=== PATIENT | female | born 1955 | race Caucasian/White ===

== ENCOUNTER → 2021-09-23 10:53 | Outpatient (BNVA) | payer MEDICARE, SELFPAY | PROVIDERS: PCP Internal Medicine; Visit Provider Hospitalist | DX: G47.33 Obstructive sleep apnea (adult) (pediatric) (principal); J45.909 Unspecified asthma, uncomplicated; R06.00 Dyspnea, unspecified; E66.01 Morbid (severe) obesity due to excess calories; Z68.41 Body mass index [BMI] 40.0-44.9, adult | CPT/HCPCS: 99202 ==

== ENCOUNTER 2021-10-29 12:43 | Outpatient (REF) | payer MEDICARE, SELFPAY ==
--- NOTE | 2021-10-29 15:13 | PFT_ITS ---
FLOWS: FEV1 103% of predicted at 2.67 L. FVC 89% of predicted at 3.04 L. FEV1 to FVC ratio of 0.88. No bronchodilator response. LUNG VOLUMES: Total lung capacity 87% of predicted at 4.67 L. Residual volume 71% of predicted at 1.56 L. Slow vital capacity 98% of predicted at 3.10 L. Expiratory reserve volume 30% of predicted at 0.26 L. Diffusion capacity is mildly decreased, diffusion capacity corrects to normal after adjustment for alveolar ventilation. IMPRESSION: No obstructive or restrictive ventilatory defect. No bronchodilator response. Decreased expiratory reserve volume suggests extrathoracic restriction, likely secondary to abdominal obesity. Caleb Haas MD AP/MODL / [id number]
== END 2021-10-29 12:44 | disposition home or self-care (01) ==
LOC: HO.RESP 12:43
PROVIDERS: PCP Internal Medicine; Visit Provider Hospitalist
DX: J45.909 Unspecified asthma, uncomplicated (principal); R06.00 Dyspnea, unspecified
CPT/HCPCS: 94060; 94727; 94729

== ENCOUNTER → 2021-11-21 09:43 | Outpatient (BNVA) | payer MEDICARE, SELFPAY | PROVIDERS: PCP Internal Medicine; Visit Provider Hospitalist | DX: G47.33 Obstructive sleep apnea (adult) (pediatric) (principal); J45.40 Moderate persistent asthma, uncomplicated; R06.00 Dyspnea, unspecified; E66.01 Morbid (severe) obesity due to excess calories | CPT/HCPCS: 99212 ==

== ENCOUNTER → 2022-05-05 10:06 | Outpatient (BNVA) | payer MEDICARE, SELFPAY | PROVIDERS: PCP Internal Medicine; Visit Provider Hospitalist | DX: J45.909 Unspecified asthma, uncomplicated (principal); J45.40 Moderate persistent asthma, uncomplicated; G47.33 Obstructive sleep apnea (adult) (pediatric); E66.01 Morbid (severe) obesity due to excess calories; R06.00 Dyspnea, unspecified; Z68.41 Body mass index [BMI] 40.0-44.9, adult | CPT/HCPCS: 99212 ==

== ENCOUNTER → 2022-08-06 10:14 | Outpatient (BNVA) | payer MEDICARE, SELFPAY | PROVIDERS: PCP Internal Medicine; Visit Provider Hospitalist | DX: J45.40 Moderate persistent asthma, uncomplicated (principal); R06.00 Dyspnea, unspecified; G47.33 Obstructive sleep apnea (adult) (pediatric); E66.01 Morbid (severe) obesity due to excess calories; Z68.41 Body mass index [BMI] 40.0-44.9, adult | CPT/HCPCS: 99212 ==

== ENCOUNTER → 2022-12-08 13:12 | Outpatient (BNVA) | payer MEDICARE, SELFPAY | PROVIDERS: PCP Internal Medicine; Visit Provider Hospitalist | DX: J45.40 Moderate persistent asthma, uncomplicated (principal); G47.33 Obstructive sleep apnea (adult) (pediatric); R06.00 Dyspnea, unspecified; E66.01 Morbid (severe) obesity due to excess calories; Z68.41 Body mass index [BMI] 40.0-44.9, adult | CPT/HCPCS: 99212 ==

== ENCOUNTER 2023-07-03 11:03 | Outpatient (AMB) | payer MEDICARE, SELFPAY ==
--- NOTE | 2023-07-03 11:06 | MHC.OFFVIS ---
Intake Vital Signs 07/03/23 11:07 Height 5 ft 6 in Weight 256 lb BMI 41.3 Pulse 90 Pulse Source Pulse Oximeter Pulse Oximetry (%) 97 Oxygen Delivery Method Room Air Intake Visit Reasons: Asthma Surgical Coordinator Required: No Allergies Sulfa (Sulfonamide Antibiotics) Allergy (Severe, Verified 07/03/23 11:08) Hives sulfamethoxazole [From Bactrim] Allergy (Severe, Verified 07/03/23 11:08) Hives trimethoprim [From Bactrim] Allergy (Severe, Verified 07/03/23 11:08) Hives Lactose Intolerance Adverse Reaction (Severe, Uncoded 07/03/23 11:08) Abdominal Pain HPI HPI Comments History of Present Illness Details The patient is a 68-year-old woman with known history of asthma who apparently has been developing worsening shortness of breath for the last year. The patient has been using maintenance therapy. However, continues to be symptomatic with dyspnea on exertion. Moderate severity. She is concerned about her weight. She has tried to lose weight and she has a hard time doing so. Specially since she has 0 out of breath. Apparently back in September 2020 the patient did get her vaccination for COVID-19. After the 2nd dose she developed significant abdominal discomfort and shortness of breath. She was taken to the ER where she did have a CT scan of the chest which ruled out pulmonary emboli although it did demonstrate she had evidence of pancreatitis. Thought to be related to the vaccination. In the meantime I did look at the CT scan myself and there appears to be significant amount of mosaic pattern and air trapping consistent with small airways disease and has some degree of pneumonitis. The patient has been taking her Symbicort with good adherence. She does not take any long-acting muscarinic antagonist this time. This will be an option for her. We did look at her blood work as well demonstrating evidence of eosinophilia suggesting eosinophilic phenotype which could correspond to allergic asthma. The patient had allergy testing many years ago. The patient may be a good candidate for biologic therapy if she continues to be symptomatic with her asthma. The patient also has a history of sleep apnea. She has been on CPAP now for many months. The therapy has been affecting beneficial. She does have a nasal mask or nasal pillows. She does complaint of a dry mouth. We talked about the importance of using a chinstrap. She is going to bring her CPAP machine to the next visit. 11/21/2021 the patient is here for a pulmonary follow-up visit. Patient overall is doing better from a respiratory status. She continues use her respiratory medications with good effect. She has not required her rescue inhaler. She she was curious about her CT scan of the chest. Again, demonstrated some degree of pneumonitis and also was a pattern suggestive of small airways disease. Will plan to follow-up with a chest x-ray during the next visit. It is reassuring that her symptoms are improving. She did bring her CPAP. The CPAP therapy has been affecting beneficial. She has been using it every night. We downloaded the data and she averaged VII hours. . AHI was 0.5. She has been having issues with a dry mouth. I decreased her temperature from 84 for to 78 degrees and also change her humidity back to auto. I did she will her heart is changes to manual if she wanted to go back to her previous settings. Her asthma seems to be responding well to the current therapy which includes Symbicort the Singulair and the allergy therapy. 05/05/2022 the patient is here for pulmonary follow-up visit. She is doing a little better. Although, she does complaint of dyspnea on exertion. Minimal activity makes her very short of breath. She also staying with other musculoskeletal issues that are limiting her physical activity. She has been using the Symbicort with good effect. Although she has been noticing she has been using her rescue inhaler more often also during the daytime. We did review her blood work demonstrating evidence elevations in the IgE suggesting allergic asthma. We did talk about biologic therapy such as Xolair. Her eosinophils were normal. I did give her some reading material for her to take with her. In the meantime will optimize respiratory therapy by adding Incruse to her respiratory therapy. I am hopeful that she gets relief and is able to improve her symptoms without any biologic therapy. If however she continues to have symptoms will consider biologic therapy during her next visit. She continues use her CPAP. CPAP therapy continues to be affecting beneficial. She does use it for more than 4 hours a night. She does have significant daytime drowsiness. She is also feeling tired. She is wondering if it is from her sleep apnea not being treated. She does have an old machine more than 6 years old. We can see about switching at this time. Her AHI appears to be well. Will request a replacement machine at this time. in the meantime she also follow-up with primary care doctor to evaluate other etiologies for chronic fatigue. 08/06/2022 the patient is here for a pulmonary follow-up visit. Overall the patient is doing well. She is working on her lifestyle changes. She started the diet. She is looking to going back to the gym and exercising as she has gained weight. From a CPAP standpoint she has been using a new CPAP. I do not have access to it right now. She has been using more than 4 hours a night per report. The patient does complaint of a dry mouth. Understandably the new rest pain machine has a very small water chamber. Therefore I did given instructions on how to adjust doubt temperature and the humidity to make sure that it is enough therapy for the night. The patient does use a full mask already. No significant issues with mask fitting. She has been getting supplies readily available to her [employer]. In the meantime she has increased asthma symptoms. She does have chest tightness. She has been using Symbicort. She also was prescribed Incruse. The patient does have increased shortness of breath and chest tightness specially when exercising. I did recommend she can use her rescue inhaler as needed but also before exercise. The patient also has a peak flow and I did provide her a new 1 in order for her to monitor her peak flows and address any issues. As far as biologic therapies the patient does have an elevated IgE and also has significant allergies. The patient will benefit from Xolair at this time. Will have her do repeat the blood work since has been almost a year to see the actual dose that she will benefit from. Once the patient starts Xolair we can minimize the use of prednisone and hopefully improve her quality of life and exercise capacity. 12/08/2022 the patient is here for a pulmonary follow-up visit. Overall she is doing a little better. She continues on the Symbicort. The addition of the Incruse was effective for her. She feels like is helping her breathing. Although, she still feels shortness of breath with activity. She also complains of a cough sometimes productive in nature. We did talk about asthmatic bronchitis and chronic bronchitis and potentially starting her on therapy for the congestion. However, it will cause additional polypharmacy. She needs to start using the nebulizer did not provide better bronchopulmonary hygiene with hopes of minimizing additional medications. If the patient is no better with increasing nebulized therapy and continue respiratory therapy we can consider starting biologic therapy such as Xolair to help with her significant allergies. Her IgE was already noted to be elevated and therefore she will respond well to Xolair. The other option if her allergy testing is not significantly elevated is to consider Daliresp. Therefore should continue with therapy start bronchopulmonary hygiene with the nebulizer and will get blood work prior to the next visit 07/03/2023 the patient is here for a sick visit. Apparently back late May she started having worsening respiratory symptoms. She went to an Urgent Care was diagnosed with bronchitis and given a Z-Chivo. Her symptoms continued to worsen and she went to see her primary care doctor at that point she was given some prednisone for worsening cough in addition to additional antibiotics, doxycycline for 7 days. Her cough is significantly she ended up getting cough syrup with codeine. She had a very croupy cough. Therefore protests was thought about and at that point she already was treated with azithromycin. She did have a chest x-ray read as no acute disease also personally reviewed the x-ray agree with the results. The patient was then placed another course of prednisone and as 3rd course of antibiotics with Augmentin as she was not getting any better. Today she has come in and she is still on 40 mg of prednisone and she still having some increasing cough and shortness of breath and chest tightness. She has been using her nebulizer. I did encourage her to use it more. I did given 2 DuoNeb treatments in the office because of her bronchospasms. The patient also received Solu-Medrol 125 mg IM x1. Appears that she likely has a component of postviral bacterial lower respiratory infection. I do agree with the Augmentin. Will add doxycycline to the regimen just to treat more further the possibility of staph and strep. If the patient is no better she is able to bring up a sputum for culture that will be helpful as well. In meantime she will continue with Symbicort inhaler. 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) History of total left knee replacement (TKR) (~12/2015) History of partial hysterectomy (~10/2010) Social History (Updated 09/23/21 @ 11:11 by RATNA Tavarez) Patient Tobacco Use Status: Never used Tobacco Review of Systems Const Denies daytime sleepiness and Reports fatigue Eyes Denies change in vision ENT Denies change in voice, Reports nasal congestion and Reports nasal discharge Card Denies chest pain and Reports dyspnea on exertion Resp Reports change in phlegm color, Reports chest congestion, Reports cough, Denies hemoptysis, Reports dyspnea on exertion and Reports wheezing GI Reports no additional complaints Musc Reports no additional complaints Skin/Breast Denies rash Neuro Reports no additional complaints Endo Reports fatigue Betito/Lymph Denies easy bruising Aller/Immun Reports wheezing Physical Exam Vital Signs: Last Vital Signs Pulse 90 07/03/23 11:07 Pulse Ox 97 07/03/23 11:07 Oxygen Delivery Method Room Air 07/03/23 11:07 BMI result Body Mass Index 41.3 Const General: alert Neck Neck: Yes normal visual inspection, Yes full ROM and Yes no lymphadenopathy Chest Chest palpation & inspection: normal inspection of the chest Resp Effort & Inspection: Actively coughing Quality: actively coughing, tachypneic and prolonged expiratory phase Auscultation: wheezes and diminished lung sounds Cardio Rate: regular rate Rhythm: regular rhythm Heart sounds: S1 normal heart sound present and S2 normal heart sound present GI Palpation (GI): Soft to palpation and nontender Auscultation: normal bowel sounds Skin General skin exam: rashes and/or lesions noted Office Procedures Nebulizer Treatment Nebulizer Treatment [id number] RX initial, or Nebulizer Subsequent Treatment Office Meds methylprednisolone sod suc(PF) 125 mg/2 mL solution for injection Performing Provider: Anival Hook MD Performing Location: [facility] Administered by: Meagan New LPN on 07/03/23 13:30 Dose Route Admin Location Dispensed Lot Number Expiration Date [employer] 125 mg IM R buttock 2 mL [id number] 06/28/25 3876-7928-40 [employer] ipratropium 0.5 mg-albuterol 3 mg (2.5 mg base)/3 mL nebulization soln Performing Provider: Anival Hook MD Performing Location: [facility] Administered by: Meagan New LPN on 07/03/23 13:30 Dose Route Admin Location Dispensed Lot Number Expiration Date [employer] 3 mL inhalation 3 mL [id number] 12/26/24 8029-9438-71 [facility] Assessment & Plan Assessment & Plan (1) Asthma: Code(s): J45.909 - Unspecified asthma, uncomplicated Qualifiers: Asthma complication type: with acute exacerbation Asthma persistence: persistent Asthma severity: moderate Qualified Code(s): J45.41 - Moderate persistent asthma with (acute) exacerbation (2) Obstructive sleep apnea: Comment: (mild [place] on 04/18/2015 Sleep test) Code(s): G47.33 - Obstructive sleep apnea (adult) (pediatric) (3) Dyspnea: Code(s): R06.00 - Dyspnea, unspecified Qualifiers: Dyspnea type: dyspnea on exertion Qualified Code(s): R06.00 - Dyspnea, unspecified (4) Tracheobronchitis: Code(s): J40 - Bronchitis, not specified as acute or chronic Plan Continue nebulized therapy, DuoNeb x2 provided in the office Continue prednisone taper, Solu-Medrol 125 mg IM administer today Continue Augmentin Restart doxycycline Cough medication Sputum culture if able Continue Symbicort, will need to change based on formulary continue Incruse KERRI as needed Continue PAP therapty 8-12, The patient continues to be symptomatic. AirSense 11 consider starting Bilogic therapy, elevated IgE. Xolair will be helpful bloodwork Weight management F/U 2 months Orders: Orders AMB Nebulizer Treatment 07/03/23 J45.909 - Unspecified asthma, uncomplicated AMB Methylprednisolone Injection 07/03/23 J45.909 - Unspecified asthma, uncomplicated Medications: New codeine-guaifenesin 10-100 mg/5 mL 10 mL PO Q6H 10 days PRN 300 mL 0RF cough albuterol sulfate 2.5 mg (3 mL) inhalation Q6H 30 days PRN 180 mL 11RF shortness of breath or wheezing Coding Level of Care Code Est Pt Level 4 (43787) Diagnoses Moderate persistent asthma with acute exacerbation J45.41 Asthma complication type: with acute exacerbation Asthma persistence: persistent Asthma severity: moderate Obstructive sleep apnea G47.33 Dyspnea on exertion R06.00 Dyspnea type: dyspnea on exertion Tracheobronchitis J40 CPT Codes Nebulizer Treatment - Nebulizer Treatment, initial or subsequent: [id number]/MDI RX initial, or Nebulizer Subsequent Treatment ([id number]) Time Spent (min) 20
[2023-07-03 11:07] VITALS: PULSE 90; O2SAT 97; BMI 41.3
== END 2023-07-03 11:49 | disposition home or self-care (01) ==
PROVIDERS: PCP Internal Medicine; Visit Provider Hospitalist
DX: J45.41 Moderate persistent asthma with (acute) exacerbation (principal); G47.33 Obstructive sleep apnea (adult) (pediatric); R06.00 Dyspnea, unspecified; J40 Bronchitis, not specified as acute or chronic
CPT/HCPCS: 99214

== ENCOUNTER → 2023-07-03 11:03 | Outpatient (BNVA) | payer MEDICARE, SELFPAY | PROVIDERS: PCP Internal Medicine; Visit Provider Hospitalist | DX: J45.41 Moderate persistent asthma with (acute) exacerbation (principal); J40 Bronchitis, not specified as acute or chronic; G47.33 Obstructive sleep apnea (adult) (pediatric); R06.00 Dyspnea, unspecified | CPT/HCPCS: 94640; 96372; 99212; J2930 ==

== ENCOUNTER 2023-11-27 14:02 | Outpatient (AMB) | payer MEDICARE, SELFPAY ==
[2023-11-27 14:06] VITALS: PULSE 72; O2SAT 96; BMI 41.8
--- NOTE | 2023-11-27 14:06 | A.OFFVIS_ITS ---
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 The patient has been using maintenance therapy. However, continues to be symptomatic with dyspnea on exertion. Moderate severity. She is concerned about her weight. She has tried to lose weight and she has a hard time doing so. Specially since she has 0 out of breath. Apparently back in September 2020 the patient did get her vaccination for COVID-19. After the 2nd dose she developed significant abdominal discomfort and shortness of breath. She was taken to the ER where she did have a CT scan of the chest which ruled out pulmonary emboli although it did demonstrate she had evidence of pancreatitis. Thought to be related to the vaccination. In the meantime I did look at the CT scan myself and there appears to be significant amount of mosaic pattern and air trapping consistent with small airways disease and has some degree of pneumonitis. The patient has been taking her Symbicort with good adherence. She does not take any long-acting muscarinic antagonist this time. This will be an option for her. We did look at her blood work as well demonstrating evidence of eosinophilia suggesting eosinophilic phenotype which could correspond to allergic asthma. The patient had allergy testing many years ago. The patient may be a good candidate for biologic therapy if she continues to be symptomatic with her asthma. The patient also has a history of sleep apnea. She has been on CPAP now for many months. The therapy has been affecting beneficial. She does have a nasal mask or nasal pillows. She does complaint of a dry mouth. We talked about the importance of using a chinstrap. She is going to bring her CPAP machine to the next visit. 11/21/2021 the patient is here for a pulmonary follow-up visit. Patient overall is doing better from a respiratory status. She continues use her respiratory medications with good effect. She has not required her rescue inhaler. She she was curious about her CT scan of the chest. Again, demonstrated some degree of pneumonitis and also was a pattern suggestive of small airways disease. Will p ady to follow-up with a chest x-ray during the next visit. It is reassuring that her symptoms are improving. She did bring her CPAP. The CPAP therapy has been affecting beneficial. She has been using it every night. We downloaded the data and she averaged VII hours. . AHI was 0.5. She has been having issues with a dry mouth. I decreased her temperature from 84 for to 78 degrees and also change her humidity back to auto. I did she will her heart is changes to manual if she wanted to go back to her previous settings. Her asthma seems to be responding well to the current therapy which includes Symbicort the Singulair and the allergy therapy. 05/05/2022 the patient is here for pulmonary follow-up visit. She is doing a little better. Although, she does complaint of dyspnea on exertion. Minimal activity makes her very short of breath. She also staying with other musculoskeletal issues that are limiting her physical activity. She has been using the Symbicort with good effect. Although she has been noticing she has been using her rescue inhaler more often also during the daytime. We did review her blood work demonstrating evidence elevations in the IgE suggesting allergic asthma. We did talk about biologic therapy such as Xolair. Her eosinophils were normal. I did give her some reading material for her to take with her. In the meantime will optimize respiratory therapy by adding Incruse to her respiratory therapy. I am hopeful that she gets relief and is able to improve her symptoms without any biologic therapy. If however she continues to have symptoms will consider biologic therapy during her next visit. She continues use her CPAP. CPAP therapy continues to be affecting beneficial. She does use it for more than 4 hours a night. She does have significant daytime drowsiness. She is also feeling tired. She is wondering if it is from her sleep apnea not being treated. She does have an old machine more than 6 years old. We can see about switching at this time. Her AHI appears to be well. Will request a replacement machine at this time. in the meantime she also follow-up with primary care doctor to evaluate other etiologies for chronic fatigue. 08/06/2022 the patient is here for a pulmonary follow-up visit. Overall the patient is doing well. She is working on her lifestyle changes. She started the diet. She is looking to going back to the gym and exercising as she has gained weight. From a CPAP standpoint she has been using a new CPAP. I do not have access to it right now. She has been using more than 4 hours a night per report. The patient does complaint of a dry mouth. Understandably the new rest pain machine has a very small water chamber. Therefore I did given instructions on how to adjust doubt temperature and the humidity to make sure that it is enough therapy for the night. The patient does use a full mask already. No significant issues with mask fitting. She has been getting supplies readily available to her [employer] company. In the meantime she has increased asthma symptoms. She does have chest tightness. She has been using Symbicort. She also was prescribed Incruse. The patient does have increased shortness of breath and chest tightness specially when exercising. I did recommend she can use her rescue inhaler as needed but also before exercise. The patient also has a peak flow and I did provide her a new 1 in order for her to monitor her peak flows and address any issues. As far as biologic therapies the patient does have an elevated IgE and also has significant allergies. The patient will benefit from Xolair at this time. Will have her do repeat the blood work since has been almost a year to see the actual dose that she will benefit from. Once the patient starts Xolair we can minimize the use of prednisone and hopefully improve her quality of life and exercise capacity. 12/08/2022 the patient is here for a pulmonary follow-up visit. Overall she is doing a little better. She continues on the Symbicort. The addition of the Incruse was effective for her. She feels like is helping her breathing. Although, she still feels shortness of breath with activity. She also complains of a cough sometimes productive in nature. We did talk about asthmatic bronchitis and chronic bronchitis and potentially starting her on therapy for the congestion. However, it will cause additional polypharmacy. She needs to start using the nebulizer did not provide better bronchopulmonary hygiene with hopes of minimizing additional medications. If the patient is no better with increasing nebulized therapy and continue respiratory therapy we can consider starting biologic therapy such as Xolair to help with her significant allergies. Her IgE was already noted to be elevated and therefore she will respond well to Xolair. The other option if her allergy testing is not significantly elevated is to consider Daliresp. Therefore should continue with therapy start bronchopulmonary hygiene with the nebulizer and will get blood work prior to the next visit 07/03/2023 the patient is here for a sick visit. Apparently back late May she started having worsening respiratory symptoms. She went to an Urgent Care was diagnosed with bronchitis and given a Z-Chivo. Her symptoms continued to worsen and she went to see her primary care doctor at that point she was given some prednisone for worsening cough in addition to additional antibiotics, doxycycline for 7 days. Her cough is significantly she ended up getting cough syrup with codeine. She had a very croupy cough. Therefore protests was thought about and at that point she already was treated with azithromycin. She did have a chest x-ray read as no acute disease also personally reviewed the x- ray agree with the results. The patient was then placed another course of prednisone and as 3rd course of antibiotics with Augmentin as she was not getting any better. Today she has come in and she is still on 40 mg of pred nisone and she still having some increasing cough and shortness of breath and chest tightness. She has been using her nebulizer. I did encourage her to use it more. I did given 2 DuoNeb treatments in the office because of her bronchospasms. The patient also received Solu-Medrol 125 mg IM x1. Appears that she likely has a component of postviral bacterial lower respiratory infection. I do agree with the Augmentin. Will add doxycycline to the regimen just to treat more further the possibility of staph and strep. If the patient is no better she is able to bring up a sputum for culture that will be helpful as well. In meantime she will continue with Symbicort inhaler. 11/27/2023 the patient is here for a pulmonary follow-up visit. The patient is still having hard time with her asthma. Continues have wheezing at times. Moderate severity. Also shortness breath with activity. She also has a nonproductive cough. Her inhalers have not been completely effective. Will go ahead and maximize her respiratory therapy by switching over to Trelegy. Also with a free can chronic bronchitis and frequent exacerbations she will be a good candidate for Daliresp. Explained to her the side effects and she can start a low dose and then slowly increase it to hopefully reach the therapeutic dose of 100 mcg. The patient is also concerned about her weight. She is considering being evaluated for medical weight management. She continues use her CPAP every night. CPAP therapy has been affecting beneficial. She has been on CPAP for many years. She can not sleep without it. When she does sleep without it she does wake up short of breath. [facility] Medical History (Updated 11/29/23 @ 22:51 by Anival Hook MD) Asthma-COPD overlap syndrome Chronic cough Obstructive sleep apnea Morbid obesity Lactose intolerance History of uterine cancer Anxiety Hyperlipidemia Hypertension Dyspnea Asthma Surgical History (Updated 09/23/21 @ 15:28 by Marj Lepe PA-C) History of surgery on left wrist (~1977) History of umbilical hernia repair (~1979) History of appendectomy (~02/2014) History of total right knee replacement (TKR) (~08/2016) History of total left knee replacement (TKR) (~12/2015) History of partial hysterectomy (~10/2010) Social History (Updated 09/23/21 @ 11:11 by RATNA Tavarez) Patient Tobacco Use Status: Never used Tobacco Review of Systems Const Denies daytime sleepiness and Reports fatigue Eyes Denies change in vision ENT Denies change in voice, Reports nasal congestion and Reports nasal discharge Card Denies chest pain and Reports dyspnea on exertion Resp Reports cough, Denies hemoptysis, Reports dyspnea on exertion and Reports wheezing GI Reports no additional complaints Musc Reports no additional complaints Skin/Breast Denies rash Neuro Reports no additional complaints Endo Reports fatigue Betito/Lymph Denies easy bruising Aller/Immun Reports wheezing Physical Exam Vital Signs: Last Vital Signs Pulse 72 11/27/23 14:06 Pulse Ox 96 11/27/23 14:06 Oxygen Delivery Method Room Air 11/27/23 14:06 BMI result Body Mass Index 41.8 Const General: alert Neck Neck: Yes normal visual inspection, Yes full ROM and Yes no lymphadenopathy Chest Chest palpation & inspection: normal inspection of the chest Resp Effort & Inspection: normal respiratory effort and prolonged expiratory phase Auscultation: wheezes and diminished lung sounds Cardio Rate: regular rate Rhythm: regular rhythm Heart sounds: S1 normal heart sound present and S2 normal heart sound present GI Palpation (GI): Soft to palpation and nontender Auscultation: normal bowel sounds Skin General skin exam: rashes and/or lesions noted Assessment & Plan Assessment & Plan (1) Asthma: Code(s): J45.909 - Unspecified asthma, uncomplicated Category: Medical Qualifiers: Asthma complication type: uncomplicated Asthma persistence: persistent Asthma severity: moderate Qualified Code(s): J45.40 - Moderate persistent asthma, uncomplicated (2) Obstructive sleep apnea: Comment: (mild [place] on 04/18/2015 Sleep test) Code(s): G47.33 - Obstructive sleep apnea (adult) (pediatric) Category: Medical (3) Dyspnea: Code(s): R06.00 - Dyspnea, unspecified Category: Medical Qualifiers: Dyspnea type: dyspnea on exertion Qualified Code(s): R06.00 - Dyspnea, unspecified (4) Asthma-COPD overlap syndrome: Code(s): J44.89 - Other specified chronic obstructive pulmonary disease Category: Medical Plan stop Symbicort, will need to change based on formulary stop Incruse start Trelegy 200 start Daliresp 250mcg KERRI as needed Continue PAP therapty 8-12, The patient continues to be symptomatic. AirSense 11 consider starting Bilogic therapy, elevated IgE. Xolair will be helpful Weight management F/U 3-4 months Medications: New roflumilast (Daliresp) 250 mcg PO DAILY 30 tabs 11RF 30 days J44.9 - Chronic obstructive pulmonary disease, unspecified [id number] 200-62.5-25 mcg (Trelegy Ellipta) 1 inh inhalation DAILY 60 ea 12RF 30 days Coding Level of Care Code Est Pt Level 4 (51495) Diagnoses Moderate persistent asthma without complication J45.40 Asthma complication type: uncomplicated Asthma persistence: persistent Asthma severity: moderate Obstructive sleep apnea G47.33 Dyspnea on exertion R06.00 Dyspnea type: dyspnea on exertion Asthma-COPD overlap syndrome J44.89 Time Spent (min) 17
== END 2023-11-27 14:26 | disposition home or self-care (01) ==
PROVIDERS: PCP Internal Medicine; Visit Provider Hospitalist
DX: J45.40 Moderate persistent asthma, uncomplicated (principal); G47.33 Obstructive sleep apnea (adult) (pediatric); R06.00 Dyspnea, unspecified; J44.89 Other specified chronic obstructive pulmonary disease
CPT/HCPCS: 99214

== ENCOUNTER → 2023-11-27 14:02 | Outpatient (BNVA) | payer MEDICARE, SELFPAY | PROVIDERS: PCP Internal Medicine; Visit Provider Hospitalist | DX: J45.40 Moderate persistent asthma, uncomplicated (principal); J44.89 Other specified chronic obstructive pulmonary disease; G47.33 Obstructive sleep apnea (adult) (pediatric); R06.00 Dyspnea, unspecified | CPT/HCPCS: 99212 ==

== ENCOUNTER 2024-05-06 14:42 | Outpatient (AMB) | payer MEDICARE, SELFPAY ==
--- NOTE | 2024-05-06 14:43 | A.OFFVIS_ITS ---
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 offered & declined Accompanied by: Self / Same As Patient Allergies Sulfa (Sulfonamide Antibiotics) Allergy (Severe, Verified 05/06/24 14:49) Hives sulfamethoxazole [From Bactrim] Allergy (Severe, Verified 05/06/24 14:49) Hives trimethoprim [From Bactrim] Allergy (Severe, Verified 05/06/24 14:49) Hives Lactose Intolerance Adverse Reaction (Severe, Uncoded 05/06/24 14:49) Abdominal Pain Medication List - Last Reconciled 05/06/24 by Kaur Mtz LPN albuterol sulfate 90 mcg/actuation 2 inhalations inhalation Q6H PRN 30 days albuterol sulfate 2.5 mg (3 mL) inhalation Q6H PRN 30 days atorvastatin 10 mg PO DAILY codeine-guaifenesin 10-100 mg/5 mL 10 mL PO Q6H PRN 10 days rcjzbfmotve-imzrrkhhf-knaphikd 200-62.5-25 mcg (Trelegy Ellipta) 1 inh inhalation DAILY 30 days lisinopril 15 mg PO meloxicam 7.5 mg PO DAILY montelukast 10 mg PO DAILY 90 days nebulizers As directed oxybutynin chloride ER 10 mg PO DAILY roflumilast (Daliresp) 250 mcg PO DAILY 30 days HPI Comments Details: The patient is a 69-year-old woman with known history of asthma who apparently has been developing worsening shortness of breath for the last year. The patient has been using maintenance therapy. However, continues to be sym ptomatic with dyspnea on exertion. Moderate severity. She is concerned about her weight. She has tried to lose weight and she has a hard time doing so. Specially since she has 0 out of breath. Apparently back in September 2020 the patient did get her vaccination for COVID-19. After the 2nd dose she developed significant abdominal discomfort and shortness of breath. She was taken to the ER where she did have a CT scan of the chest which ruled out pulmonary emboli although it did demonstrate she had evidence of pancreatitis. Thought to be related to the vaccination. In the meantime I did look at the CT scan myself and there appears to be significant amount of mosaic pattern and air trapping consistent with small airways disease and has some degree of pneumonitis. The patient has been taking her Symbicort with good adherence. She does not take any long-acting muscarinic antagonist this time. This will be an option for her. We did look at her blood work as well demonstrating evidence of eosinophilia suggesting eosinophilic phenotype which could correspond to allergic asthma. The patient had allergy testing many years ago. The patient may be a good candidate for biologic therapy if she continues to be symptomatic with her asthma. The patient also has a history of sleep apnea. She has been on CPAP now for many months. The therapy has been affecting beneficial. She does have a nasal mask or nasal pillows. She does complaint of a dry mouth. We talked about the importance of using a chinstrap. She is going to bring her CPAP machine to the next visit. 11/21/2021 the patient is here for a pulmonary follow-up visit. Patient overall is doing better from a respiratory status. She continues use her respiratory medications with good effect. She has not required her rescue inhaler. She she was curious about her CT scan of the chest. Again, demonstrated some degree of pneumonitis and also was a pattern suggestive of small airways disease. Will plan to follow-up with a chest x-ray during the next visit. It is reassuring that her symptoms are improving. She did bring her CPAP. The CPAP therapy has been affecting beneficial. She has been using it every night. We downloaded the data and she averaged VII hours. . AHI was 0.5. She has been having issues with a dry mouth. I decreased her temperature from 84 for to 78 degrees and also change her humidity back to auto. I did she will her heart is changes to manual if she wanted to go back to her previous settings. Her asthma seems to be responding well to the current therapy which includes Symbicort the Singulair and the allergy therapy. 05/05/2022 the patient is here for pulmonary follow-up visit. She is doing a little better. Although, she does complaint of dyspnea on exertion. Minimal activity makes her very short of breath. She also staying with other musculoskeletal issues that are limiting her physical activity. She has been using the Symbicort with good effect. Although she has been noticing she has been using her rescue inhaler more often also during the daytime. We did review her blood work demonstrating evidence elevations in the IgE suggesting allergic asthma. We did talk about biologic therapy such as Xolair. Her eosinophils were normal. I did give her some reading material for her to take with her. In the meantime will optimize respiratory therapy by adding Incruse to her respiratory therapy. I am hopeful that she gets relief and is able to improve her symptoms without any biologic therapy. If however she continues to have symptoms will consider biologic therapy during her next visit. She continues use her CPAP. CPAP therapy continues to be affecting beneficial. She does use it for more than 4 hours a night. She does have significant daytime drowsiness. She is also feeling tired. She is wondering if it is from her sleep apnea not being treated. She does have an old machine more than 6 years old. We can see about switching at this time. Her AHI appears to be well. Will request a replacement machine at this time. in the meantime she also follow-up with primary care doctor to evaluate other etiologies for chronic fatigue. 08/06/2022 the patient is here for a pulmonary follow-up visit. Overall the patient is doing well. She is working on her lifestyle changes. She started the diet. She is looking to going back to the gym and exercising as she has gained weight. From a CPAP standpoint she has been using a new CPAP. I do not have access to it right now. She has been using more than 4 hours a night per report. The patient does complaint of a dry mouth. Understandably the new rest pain machine has a very small water chamber. Therefore I did given instructions on how to adjust doubt temperature and the humidity to make sure that it is enough therapy for the night. The patient does use a full mask already. No significant issues with mask fitting. She has been getting supplies readily available to her [employer] company. In the meantime she has increased asthma symptoms. She does have chest tightness. She has been using Symbicort. She also was prescribed Incruse. The patient does have increased shortness of breath and chest tightness specially when exercising. I did recommend she can use her rescue inhaler as needed but also before exercise. The patient also has a peak flow and I did provide her a new 1 in order for her to monitor her peak flows and address any issues. As far as biologic therapies the patient does have an elevated IgE and also has significant allergies. The patient will benefit from Xolair at this time. Will have her do repeat the blood work since has been almost a year to see the actual dose that she will benefit from. Once the patient starts Xolair we can minimize the use of prednisone and hopefully improve her quality of life and exercise capacity. 12/08/2022 the patient is here for a pulmonary follow-up visit. Overall she is doing a little better. She continues on the Symbicort. The addition of the Incruse was effective for her. She feels like is helping her breathing. Although, she still feels shortness of breath with activity. She also complains of a cough sometimes productive in nature. We did talk about asthmatic bronchitis and chronic bronchitis and potentially starting her on therapy for the congestion. However, it will cause additional polypharmacy. She needs to start using the nebulizer did not provide better bronchopulmonary hygiene with hopes of minimizing additional medications. If the patient is no better with increasing nebulized therapy and continue respiratory therapy we can consider starting biologic therapy such as Xolair to help with her significant allergies. Her IgE was already noted to be elevated and therefore she will respond well to Xolair. The other option if her allergy testing is not significantly elevated is to consider Daliresp. Therefore should continue with therapy start bronchopulmonary hygiene with the nebulizer and will get blood work prior to the next visit 07/03/2023 the patient is here for a sick visit. Apparently back late May she started having worsening respiratory symptoms. She went to an Urgent Care was diagnosed with bronchitis and given a Z-Chivo. Her symptoms continued to worsen and she went to see her primary care doctor at that point she was given some prednisone for worsening cough in addition to additional antibiotics, doxycycline for 7 days. Her cough is significantly she ended up getting cough syrup with codeine. She had a very croupy cough. Therefore protests was thought about and at that point she already was treated with azithromycin. She did have a chest x-ray read as no acute disease also personally reviewed the x- ray agree with the results. The patient was then placed another course of prednisone and as 3rd course of antibiotics with Augmentin as she was not getting any better. Today she has come in and she is still on 40 mg of prednisone and she still having some increasing cough and shortness of breath and chest tightness. She has been using her nebulizer. I did encourage her to use it more. I did given 2 DuoNeb treatments in the office because of her bronchospasms. The patient also received Solu-Medrol 125 mg IM x1. Appears that she likely has a component of postviral bacterial lower respiratory infection. I do agree with the Augmentin. Will add doxycycline to the regimen just to treat more further the possibility of staph and strep. If the patient is no better she is able to bring up a sputum for culture that will be helpful as well. In meantime she will continue with Symbicort inhaler. 11/27/2023 the patient is here for a pulmonary follow-up visit. The patient is still having hard time with her asthma. Continues have wheezing at times. Moderate severity. Also shortness breath with activity. She also has a nonproductive cough. Her inhalers have not been completely effective. Will go ahead and maximize her respiratory therapy by switching over to Trelegy. Also with a free can chronic bronchitis and frequent exacerbations she will be a good candidate for Daliresp. Explained to her the side effects and she can start a low dose and then slowly increase it to hopefully reach the therapeutic dose of 100 mcg. The patient is also concerned about her weight. She is considering being evaluated for medical weight management. She continues use her CPAP every night. CPAP therapy has been affecting beneficial. She has been on CPAP for many years. She can not sleep without it. When she does sleep without it she does wake up short of breath. 05/06/2024 the patient is here for pulmonary follow-up visit. The patient overall has been doing okay although she has had a worsening cough. She apparently had surgery and after the surgery she started developing irritation to the throat and worsening cough. She already has evidence of a croupy cough and that just subsequently got worse. She went to her primary care doctor recommended she come in here. She continues on the Trelegy inhaler. She continues on the low-dose Daliresp. On exam she does have congestion in the chest and also some rhonchi and some expiratory wheezing with some post exhalation coughing. Therefore will go ahead and treated with doxycycline and a Medrol pack to help her with the inflammatory changes. Also increase the Daliresp up to the 500 mcg dose which is the therapeutic dose. The patient also needs a cough medication to settle down the coughs to allow the areas to heal. Will follow-up in 3 or 4 months. I which point she continues to have symptoms will have to consider biologic therapies. If any issues arise prior to the next visit she will call for an earlier assessment. FORMERLY [facility], [facility] Medical History (Updated 11/29/23 @ 22:51 by Anival Hook MD) Asthma-COPD overlap syndrome Chronic cough Obstructive sleep apnea Morbid obesity Lactose intolerance History of uterine cancer Anxiety Hyperlipidemia Hypertension Dyspnea Asthma Surgical History (Updated 09/23/21 @ 15:28 by Marj Lepe PA-C) History of surgery on left wrist (~1977) History of umbilical hernia repair (~1979) History of appendectomy (~02/2014) History of total right knee replacement (TKR) (~08/2016) History of total left knee replacement (TKR) (~12/2015) History of partial hysterectomy (~10/2010) Social History (Updated 05/06/24 @ 14:52 by Kaur Mtz LPN) Patient Tobacco Use Status: Never used Tobacco Review of Systems Const Denies daytime sleepiness and Reports fatigue Eyes Denies change in vision ENT Denies change in voice, Reports nasal congestion and Reports nasal discharge Card Denies chest pain and Reports dyspnea on exertion Resp Reports cough, Denies hemoptysis, Reports dyspnea on exertion and Reports wheezing GI Reports no additional complaints Musc Reports no additional complaints Skin/Breast Denies rash Neuro Reports no additional complaints Endo Reports fatigue Betito/Lymph Denies easy bruising Aller/Immun Reports wheezing Physical Exam Vital Signs: Last Vital Signs Pulse 78 05/06/24 14:47 BP 132/76 05/06/24 14:47 Pulse Ox 99 05/06/24 14:47 Oxygen Delivery Method Room Air 05/06/24 14:47 BMI result Body Mass Index 40.7 Const General: alert Neck Neck: Yes normal visual inspection, Yes full ROM and Yes no lymphadenopathy Chest Chest palpation & inspection: normal inspection of the chest Resp Effort & Inspection: normal respiratory effort and prolonged expiratory phase Auscultation: wheezes and diminished lung sounds Cardio Rate: regular rate Rhythm: regular rhythm Heart sounds: S1 normal heart sound present and S2 normal heart sound present GI Palpation (GI): Soft to palpation and nontender Auscultation: normal bowel sounds Skin General skin exam: rashes and/or lesions noted Assessment & Plan Assessment & Plan (1) Asthma: Code(s): J45.909 - Unspecified asthma, uncomplicated Category: Medical Qualifiers: Asthma complication type: uncomplicated Asthma persistence: persistent Asthma severity: moderate Qualified Code(s): J45.40 - Moderate persistent asthma, uncomplicated (2) Obstructive sleep apnea: Comment: (mild [place] on 04/18/2015 Sleep test) Code(s): G47.33 - Obstructive sleep apnea (adult) (pediatric) Category: Medical (3) Dyspnea: Code(s): R06.00 - Dyspnea, unspecified Category: Medical Qualifiers: Dyspnea type: dyspnea on exertion Qualified Code(s): R06.00 - Dyspnea, unspecified (4) Asthma-COPD overlap syndrome: Code(s): J44.89 - Other specified chronic obstructive pulmonary disease Category: Medical Plan start Doxy start Medrol pack Trelegy 200 increase Daliresp 250mcg ->500 KERRI as needed Continue PAP therapty 8-12, The patient continues to be symptomatic. AirSense 11 consider starting Bilogic therapy, elevated IgE. Xolair will be helpful Weight management F/U 3-4 months Orders: Orders XR chest 2V 05/06/24 J44.89 - Other specified chronic obstructive pulmonary disease Medications: New doxycycline monohydrate 100 mg PO BID 28 tabs 0RF 14 days methylprednisolone (Medrol (Chivo)) PO PER PKG DIR 21 ea 0RF 6 days roflumilast (Daliresp) 500 mcg PO DAILY 30 tabs 6RF 30 days Refilled codeine-guaifenesin 10-100 mg/5 mL 10 mL PO Q6H PRN 300 mL 0RF cough 10 days Discontinued roflumilast (Daliresp) Discontinued Reason: Doctor's Order 250 mcg PO DAILY 30 days 30 tabs 11RF J44.9 - Chronic obstructive pulmonary disease, unspecified Coding Level of Care Code Est Pt Level 4 (32920) Complex EM visit Add On G2211 Diagnoses Moderate persistent asthma without complication J45.40 Asthma complication type: uncomplicated Asthma persistence: persistent Asthma severity: moderate Obstructive sleep apnea G47.33 Dyspnea on exertion R06.00 Dyspnea type: dyspnea on exertion Asthma-COPD overlap syndrome J44.89 Time Spent (min) 17
[2024-05-06 14:47] VITALS: BP 132/76; PULSE 78; O2SAT 99; BMI 40.7
== END 2024-05-06 15:04 | disposition home or self-care (01) ==
PROVIDERS: PCP Internal Medicine; Visit Provider Hospitalist
DX: J45.40 Moderate persistent asthma, uncomplicated (principal); G47.33 Obstructive sleep apnea (adult) (pediatric); R06.00 Dyspnea, unspecified; J44.89 Other specified chronic obstructive pulmonary disease
CPT/HCPCS: 99214; G2211

== ENCOUNTER → 2024-05-06 14:42 | Outpatient (BNVA) | payer MEDICARE, SELFPAY | PROVIDERS: PCP Internal Medicine; Visit Provider Hospitalist | DX: J45.40 Moderate persistent asthma, uncomplicated (principal); J44.89 Other specified chronic obstructive pulmonary disease; G47.33 Obstructive sleep apnea (adult) (pediatric); R06.00 Dyspnea, unspecified | CPT/HCPCS: 99212 ==

== ENCOUNTER 2024-07-26 14:36 | Outpatient (AMB) | payer MEDICARE, SELFPAY ==
[2024-07-26 14:40] VITALS: BP 130/66; PULSE 75; O2SAT 96; BMI 40.2
--- NOTE | 2024-07-26 14:40 | A.OFFVIS_ITS ---
Vital Signs 07/26/24 14:40 Height 5 ft 6 in Weight 249 lb 1.957 oz BMI 40.2 BP 130/66 Blood Pressure Location Rt brachial Position Sitting Pulse 75 Pulse Source Pulse Oximeter Pulse Oximetry (%) 96 Oxygen Delivery Method Room Air Intake Visit Reasons: Increased dyspnea Allergies Sulfa (Sulfonamide Antibiotics) Allergy (Severe, Verified 07/26/24 14:43) Hives sulfamethoxazole [From Bactrim] Allergy (Severe, Verified 07/26/24 14:43) Hives trimethoprim [From Bactrim] Allergy (Severe, Verified 07/26/24 14:43) Hives Lactose Intolerance Adverse Reaction (Severe, Uncoded 07/26/24 14:43) Abdominal Pain HPI Comments Details: The patient is a 69-year-old woman with known history of asthma who apparently has been developing worsening shortness of breath for the last year. The patient has been using maintenance therapy. However, continues to be symptomatic with dyspnea on exertion. Moderate severity. She is concerned about her weight. She has tried to lose weight and she has a hard time doing so. Specially since she has 0 out of breath. Apparently back in September 2020 the patient did get her vaccination for COVID-19. After the 2nd dose she developed significant abdominal discomfort and shortness of breath. She was taken to the ER where she did have a CT scan of the chest which ruled out pulmonary emboli although it did demonstrate she had evidence of pancreatitis. Thought to be related to the vaccination. In the meantime I did look at the CT scan myself and there appears to be significant amount of mosaic pattern and air trapping consistent with small airways disease and has some degree of pneumonitis. The patient has been taking her Symbicort with good adherence. She does not take any long-acting muscarinic antagonist this time. This will be an option for her. We did look at her blood work as well demonstrating evidence of eosinophilia suggesting eosinophilic phenotype which could correspond to allergic asthma. The patient had allergy testing many years ago. The patient may be a good candidate for biologic therapy if she continues to be symptomatic with her asthma. The patient also has a history of sleep apnea. She has been on CPAP now for many months. The therapy has been affecting beneficial. She does have a nasal mask or nasal pillows. She does complaint of a dry mouth. We talked about the importance of using a chinstrap. She is going to bring her CPAP machine to the next visit. 11/21/2021 the patient is here for a pulmonary follow-up visit. Patient overall is doing better from a respiratory status. She continues use her respiratory medications with good effect. She has not required her rescue inhaler. She she was curious about her CT scan of the chest. Again, demonstrated some degree of pneumonitis and also was a pattern suggestive of small airways disease. Will plan to follow-up with a chest x-ray during the next visit. It is reassuring that her symptoms are improving. She did bring her CPAP. The CPAP therapy has been affecting beneficial. She has been using it every night. We downloaded the data and she averaged VII hours. . AHI was 0.5. She has been having issues with a dry mouth. I decreased her temperature from 84 for to 78 degrees and also change her humidity back to auto. I did she will her heart is changes to manual if she wanted to go back to her previous settings. Her asthma seems to be responding well to the current therapy which includes Symbicort the Singulair and the allergy therapy. 05/05/2022 the patient is here for pulmonary follow-up visit. She is doing a little better. Although, she does complaint of dyspnea on exertion. Minimal activity makes her very short of breath. She also staying with other musculoskeletal issues that are limiting her physical activity. She has been using the Symbicort with good effect. Although she has been noticing she has been using her rescue inhaler more often also during the daytime. We did review her blood work demonstrating evidence elevations in the IgE suggesting allergic asthma. We did talk about biologic therapy such as Xolair. Her eosinophils wer e normal. I did give her some reading material for her to take with her. In the meantime will optimize respiratory therapy by adding Incruse to her respiratory therapy. I am hopeful that she gets relief and is able to improve her symptoms without any biologic therapy. If however she continues to have symptoms will consider biologic therapy during her next visit. She continues use her CPAP. CPAP therapy continues to be affecting beneficial. She does use it for more than 4 hours a night. She does have significant daytime drowsiness. She is also feeling tired. She is wondering if it is from her sleep apnea not being treated. She does have an old machine more than 6 years old. We can see about switching at this time. Her AHI appears to be well. Will request a replacement machine at this time. in the meantime she also follow-up with primary care doctor to evaluate other etiologies for chronic fatigue. 08/06/2022 the patient is here for a pulmonary follow-up visit. Overall the patient is doing well. She is working on her lifestyle changes. She started the diet. She is looking to going back to the gym and exercising as she has gained weight. From a CPAP standpoint she has been using a new CPAP. I do not have access to it right now. She has been using more than 4 hours a night per report. The patient does complaint of a dry mouth. Understandably the new rest pain machine has a very small water chamber. Therefore I did given instructions on how to adjust doubt temperature and the humidity to make sure that it is enough therapy for the night. The patient does use a full mask already. No significant issues with mask fitting. She has been getting supplies readily available to her [employer] company. In the meantime she has increased asthma symptoms. She does have chest tightness. She has been using Symbicort. She also was prescribed Incruse. The patient does have increased shortness of breath and chest tightness specially when exercising. I did recommend she can use her rescue inhaler as needed but also before exercise. The patient also has a peak flow and I did provide her a new 1 in order for her to monitor her peak flows and address any issues. As far as biologic therapies the patient does have an elevated IgE and also has significant allergies. The patient will benefit from Xolair at this time. Will have her do repeat the blood work since has been almost a year to see the actual dose that she will benefit from. Once the patient starts Xolair we can minimize the use of prednisone and hopefully improve her quality of life and exercise capacity. 12/08/2022 the patient is here for a pulmonary follow-up visit. Overall she is doing a little better. She continues on the Symbicort. The addition of the Incruse was effective for her. She feels like is helping her breathing. Although, she still feels shortness of breath with activity. She also complains of a cough sometimes productive in nature. We did talk about asthmatic bro nchitis and chronic bronchitis and potentially starting her on therapy for the congestion. However, it will cause additional polypharmacy. She needs to start using the nebulizer did not provide better bronchopulmonary hygiene with hopes of minimizing additional medications. If the patient is no better with increasing nebulized therapy and continue respiratory therapy we can consider starting biologic therapy such as Xolair to help with her significant allergies. Her IgE was already noted to be elevated and therefore she will respond well to Xolair. The other option if her allergy testing is not significantly elevated is to consider Daliresp. Therefore should continue with therapy start bronchopulmonary hygiene with the nebulizer and will get blood work prior to the next visit 07/03/2023 the patient is here for a sick visit. Apparently back late May she started having worsening respiratory symptoms. She went to an Urgent Care was diagnosed with bronchitis and given a Z-Chivo. Her symptoms continued to worsen and she went to see her primary care doctor at that point she was given some prednisone for worsening cough in addition to additional antibiotics, doxycycline for 7 days. Her cough is significantly she ended up getting cough syrup with codeine. She had a very croupy cough. Therefore protests was thought about and at that point she already was treated with azithromycin. She did have a chest x-ray read as no acute disease also personally reviewed the x- ray agree with the results. The patient was then placed another course of prednisone and as 3rd course of antibiotics with Augmentin as she was not getting any better. Today she has come in and she is still on 40 mg of prednisone and she still having some increasing cough and shortness of breath and chest tightness. She has been using her nebulizer. I did encourage her to use it more. I did given 2 DuoNeb treatments in the office because of her bronchospasms. The patient also received Solu-Medrol 125 mg IM x1. Appears that she likely has a component of postviral bacterial lower respiratory infection. I do agree with the Augmentin. Will add doxycycline to the regimen just to treat more further the possibility of staph and strep. If the patient is no better she is able to bring up a sputum for culture that will be helpful as well. In meantime she will continue with Symbicort inhaler. 11/27/2023 the patient is here for a pulmonary follow-up visit. The patient is still having hard time with her asthma. Continues have wheezing at times. Moderate severity. Also shortness breath with activity. She also has a nonproductive cough. Her inhalers have not been completely effective. Will go ahead and maximize her respiratory therapy by switching over to Trelegy. Also with a free can chronic bronchitis and frequent exacerbations she will be a good candidate for Daliresp. Explained to her the side effects and she can start a low dose and then slowly increase it to hopefully reach the therapeutic dose of 100 mcg. The patient is also concerned about her weight. She is considering being evaluated for medical weight management. She continues use her CPAP every night. CPAP therapy has been affecting beneficial. She has been on CPAP for many years. She can not sleep without it. When she does sleep without it she does wake up short of breath. 05/06/2024 the patient is here for pulmonary follow-up visit. The patient overall has been doing okay although she has had a worsening cough. She apparently had surgery and after the surgery she started developing irritation to the throat and worsening cough. She already has evidence of a croupy cough and that just subsequently got worse. She went to her primary care doctor recommended she come in here. She continues on the Trelegy inhaler. She continues on the low-dose Daliresp. On exam she does have congestion in the chest and also some rhonchi and some expiratory wheezing with some post exhalation coughing. Therefore will go ahead and treated with doxycycline and a Medrol pack to help her with the inflammatory changes. Also increase the Daliresp up to the 500 mcg dose which is the therapeutic dose. The patient also needs a cough medication to settle down the coughs to allow the areas to heal. Will follow-up in 3 or 4 months. I which point she continues to have symptoms will have to consider biologic therapies. If any issues arise prior to the next visit she will call for an earlier assessment. 07/26/2024 the patient is here for a pulmonary follow-up visit. Overall she is doing better. She is tolerating the higher dose Daliresp without any significant adverse effects. In addition to that she continues on her Trelegy. Seems to be improving her symptoms. She still has dyspnea on exertion moderate severity. She does use her rescue inhaler while exercising. I did advise her that she can also use it prior to exercise. She also continues with CPAP therapy. CPAP therapy has been affecting beneficial. We did download the data and is within therapeutic range. She does use it for more than 4 hours and will continue to request supplies for the patient. At this point the patient is doing better will continue to assess her symptoms specially he allergy symptoms. She does qualify for biologics including Xolair but at this point the patient is clinically doing well so will hold off. Will reassess again in the fall when her symptoms are worse typically. If she has any issues before the next visit she will call for an earlier assessment. [facility] Medical History (Updated 11/29/23 @ 22:51 by Anival Hook MD) Asthma-COPD overlap syndrome Chronic cough Obstructive sleep apnea Morbid obesity Lactose intolerance History of uterine cancer Anxiety Hyperlipidemia Hypertension Dyspnea Asthma Surgical History (Updated 09/23/21 @ 15:28 by Marj Lepe PA-C) History of surgery on left wrist (~1977) History of umbilical hernia repair (~1979) History of appendectomy (~02/2014) History of total right knee replacement (TKR) (~08/2016) History of total left knee replacement (TKR) (~12/2015) History of partial hysterectomy (~10/2010) Social History Patient Tobacco Use Status: Never used Tobacco Review of Systems Const Denies daytime sleepiness and Reports fatigue Eyes Denies change in vision ENT Denies change in voice, Reports nasal congestion and Reports nasal discharge Card Denies chest pain and Reports dyspnea on exertion Resp Reports cough, Denies hemoptysis, Reports dyspnea on exertion and Reports wheezing GI Reports no additional complaints Musc Reports no additional complaints Skin/Breast Denies rash Neuro Reports no additional complaints Endo Reports fatigue Betito/Lymph Denies easy bruising Aller/Immun Reports wheezing Physical Exam Vital Signs: Last Vital Signs Pulse 75 07/26/24 14:40 BP 130/66 07/26/24 14:40 Pulse Ox 96 07/26/24 14:40 Oxygen Delivery Method Room Air 07/26/24 14:40 BMI result Body Mass Index 40.2 Const General: alert Neck Neck: Yes normal visual inspection, Yes full ROM and Yes no lymphadenopathy Chest Chest palpation & inspection: normal inspection of the chest Resp Effort & Inspection: normal respiratory effort and prolonged expiratory phase Auscultation: wheezes and diminished lung sounds Cardio Rate: regular rate Rhythm: regular rhythm Heart sounds: S1 normal heart sound present and S2 normal heart sound present GI Palpation (GI): Soft to palpation and nontender Auscultation: normal bowel sounds Skin General skin exam: rashes and/or lesions noted Assessment & Plan Assessment & Plan (1) Asthma: Code(s): J45.909 - Unspecified asthma, uncomplicated Category: Medical Qualifiers: Asthma complication type: uncomplicated Asthma persistence: persistent Asthma severity: moderate Qualified Code(s): J45.40 - Moderate persistent asthma, uncomplicated (2) Obstructive sleep apnea: Comment: (mild [place] on 04/18/2015 Sleep test) Code(s): G47.33 - Obstructive sleep apnea (adult) (pediatric) Category: Medical (3) Dyspnea: Code(s): R06.00 - Dyspnea, unspecified Category: Medical Qualifiers: Dyspnea type: dyspnea on exertion Qualified Code(s): R06.00 - Dyspnea, unspecified (4) Asthma-COPD overlap syndrome: Code(s): J44.89 - Other specified chronic obstructive pulmonary disease Category: Medical Plan Trelegy 200 conitnue Daliresp 500 KERRI as needed Continue PAP therapty 8-12, The patient continues to be symptomatic. AirSense 11 consider starting Bilogic therapy, elevated IgE. Xolair will be helpful Weight management F/U 8-10 months Coding Level of Care Code Est Pt Level 4 (18167) Diagnoses Moderate persistent asthma without complication J45.40 Asthma complication type: uncomplicated Asthma persistence: persistent Asthma severity: moderate Obstructive sleep apnea G47.33 Dyspnea on exertion R06.00 Dyspnea type: dyspnea on exertion Asthma-COPD overlap syndrome J44.89 Time Spent (min) 16
--- OUTSIDE RECORDS SUMMARY | 2024-07-26 15:30 | XMS_ITS ---
Author Organization [facility] Address [address] [place] [address] Care Team Providers [employer] Name Role Phone PETRA PAULA, GEORGIE Primary Care Provider Va Thompson Unavailable [phone] REASON FOR VISIT HR MEDICARE PE Encounters Encounter Location Date Provider Diagnosis [facility] [address] [place] [address] [address] [place] [address] 07/31/2023 Va Collazo Plan Of Treatment Next Appt Details Provider Name:Va sánchez, 10/28/2024 10:00:00 AM, [address], [address], [place], [address], Progress Notes * SINAN DESHPANDEOB:[birth year] (69 yo F)Acc No.[id number]:07/31/2023 PROGRESS NOTES Patient:?JORDAN DESHPANDE Appointment Provider:?Va sánchez M.D. :1955???Age:68 Y???Sex:Female D ate:07/31/2023 Address:[address] [place] [address], [id number] Pcp:GEORGIE LAMBERT MD Subjective: * Chief Complaints: * ???1. HR MEDICARE PE. * Medical History:? Objective: * Vitals:? Assessment: Plan: * Treatment: * Images: Billing Information: * Visit Code:? * Procedure Codes:? * Electronic signature of Aicha Collazo MD on 07/26/2024 at 03:30 PM EST Sign off status: Pending * Appointment Provider:?Va Collazo M.D. Date:?07/31/2023 Generated for Carmina guzman/Xavier/Polnia on:?07/26/2024 03:30 PM EST
--- OUTSIDE RECORDS SUMMARY | 2024-07-26 15:30 | XMS_ITS ---
Author Organization [facility] Address [address] [place] [address] Care Team Providers Care Product Marketing Coordinator Name Role Phone GEORGIE LAMBERT MD Primary Care Provider Va Thompson Unavailable [phone] Allergies Allergen (clinical drug ingredient) Drug/Non Drug Allergy documented on EMR Reaction Allergy Type Onset Date Status sulfamethoxazole / trimethoprim Bactrim Hives Drug Allergy Active fluconazole Diflucan Hives Drug Allergy Activ e lactose Lactose (Intolerance) Unknown Drug Allergy Active Substance with sulfonamide structure and antibacterial mechanism of action (substance) Sulfa Antibiotics Unknown Drug Allergy A ctive Results Component Value Reference Range Notes Urinalysis Reviewed date:10/27/2023 12:47:10 PM Interpretation: Performing Lab: Notes/Report: NITRITE Neg PH 5.0 PROTEIN Trace S.G 1.005 WBC Trace GLUCOSE Neg KETONES Neg UROBILINOGEN Neg BILIRUBIN Neg BLOOD Neg Urinalysis, Complete-[id number] Reviewed date:10/29/2023 08:52:07 AM Interpretation: Performing Lab:[facility], [address] [place] [address], Phone - [phone], Director - Cary Notes/Report: Specific [place] 1.012 1.005-1.030 pH 6.0 5.0-7.5 Urine-Color Yellow Yellow Appearance Clear Clear WBC Esterase Negative Negative Protein Negative Negative/Trace Glucose Negative Negative Ketones Negative Negative Occult Blood Negative Negative Bilirubin Negative Negative Urobilinogen,Semi-Qn 0.2 0.2-1.0 mg/dL Nitrite, Urine Negative Negative Microscopic Examination Micr oscopic follows if indicated. Microscopic Examination See below: Micr oscopic was indicated and was performed. WBC None seen 0 - 5 /hpf RBC 0-2 0 - 2 /hpf Epithelial Cells (non renal) None seen 0 - 10 /hpf Casts None seen None seen /lpf Bacteria None seen None seen/Few Urine Culture, Routine-[id number] Reviewed date:10/29/2023 08:51:54 AM Interpretation: Performing Lab:[facility], [address] [place] [address], Phone - [phone], Director - Cary Notes/Report: Urine Culture, Routine Final report Result 1 No growth PDF Report Reviewed date:10/29/2023 08:51:44 AM Interpretation: Performing Lab:[facility], [address] [place] [address], [place], Phone - [phone], Director - Cary Notes/Report: REASON FOR VISIT HR 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, 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 CANDY 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 60-85+ Medications Medication SIG (Take, Route, Frequency, Duration) Notes Start Date End Date Status Incruse Ellipta 62.5 MCG/ACT Inhalation for 30 Active oxyBUTYnin Chloride ER 10 MG Oral for 90 Days Active Albuterol Sulfate (2.5 MG/3ML) 0.083% INHALE 3ML BY NEBULIZER EVERY 6 HOURS Inhalation for 30 Active Meloxicam 7.5 MG Oral for 30 A ctive Clotrimazole-Betamethasone 1-0.05 % APPLY 1 APPLICATION TO AFFECTED AREA EXTERNALLY TWICE A DAY FOR 14 DAYS for 14 Active Montelukast Sodium 10 MG TAKE 1 TABLET B Y MOUTH EVERYDAY AT BEDTIME Oral for 90 Active Symbicort 160-4.5 MCG/ACT 2 puffs Inhala tion twice daily 09/07/2012 Active Atorvastatin Calcium 10 MG Oral for 30 Active Singulair 10 MG 1 tablet Orally Once a day for 30 day(s) Active Lisinopril 10 MG 1.5 tablet Orally da stephon at noon 09/07/2012 Active One Daily Womens 50+ - as directed Orally Active Probiotic - as directed Orally Active Vitamin B Complex - as directed Orally Active Vitamin D3 50 MCG (2000 UT) 1 capsule Or ally Every other day for 30 days Active Aspirin Adult Active Annie Active Social History Tobacco Use: Social History Observation Description Date Details (start date - stop date) Never Smoker NA - NA Tobacco Use/Smoking Question Answer Notes Are you a nonsmoker Alcohol Screen (Audit-C) Question Answer Notes Did you have a drink contain ing alcohol in the past year? Yes How often did you have a dri nk containing alcohol in the past year? Monthly or less (1 point) How many drinks did you have on a typical day when you were drinking in the past year? 1 or 2 drinks (0 point) Points 1 Interpretation Negative Problems Problem Type SNOMED Code ICD Code Onset Dates Problem Status W/U Status Risk Notes Problem Herniation of rectum into vagina (226858645) Rectocele (N81.6) Active confirmed Vital Signs Temperature 97.4 degrees Fahrenheit 10/27/19 24 Blood pressure systolic 128 mm Hg 10/27/19 24 Blood pressure diastolic 68 mm Hg 024 Height 67 in 10/27/2023 Weight 261 lbs 10/27/2023 BMI 40.87 kg/m2 10/27/2023 Encounters Encounter Location Date Provider Diagnosis [address] [place] [address] 10/27/2023 Va Collazo Encounter for gynecological examination (general) (routine) with abnormal findings Z01.411 ; Frequency of micturition R35.0 ; Encounter for screening mammogram for malignant neoplasm of breast Z12.31 ; Cystocele, unspecified N81.10 ; Rectocele N81.6 and Encounter for screening for osteoporosis Z13.820 Assessments Encounter Date Diagnosis (ICD Code) Assessment Notes Treatment Notes Treatment Clinical Notes Section Notes 10/27/2023 Encounter for gynecological examination (general) (routine) with abnormal findings (ICD-10 - Z01.411) NO MORE PAP TESTS. 10/27/2023 Frequency of micturition (ICD-10 - R35.0) OFFICIAL UA AND URINE C/S 10/27/2023 Encounter for screening mammogram for malignant neoplasm of breast (ICD-10 - Z12.31) REGULAR MAMMOGRAMS AND SBE'S WERE RECOMMENDED. 10/27/2023 Cystocele, unspecified (ICD-10 - N81.10) DISCUSSED FINDINGS, DX AND TX OPTIONS. OBTAIN RECORDS FROM DR HACKETT FOR OUR REVIEW. DISCUSSED POSSIBILITY OF GETTING A SECOND OPINION FROM ANOTHER UROLOGIST. 10/27/2023 Rectocele (ICD-10 - N81.6) DISCUSSED FINDINGS AND REASSURED PAT THAT RECTOCELE IS NOT BAD HER CYSTOCELE BUT WOULD ALSO BE REPAIRED. 10/27/2023 Encounter for screening for osteoporosis (ICD-10 - Z13.820) BONE DENSITY WAS ORDERED. Plan Of Treatment Treatment Notes Assessment Notes Encounter for gynecological examination (general) (routine) with abnormal findings NO MORE PAP TESTS. Frequency of micturition OFFICIAL UA AND URINE C/S Encounter for screening mamm ogram for malignant neoplasm of breast REGULAR MAMMOGRAMS AND SBE'S WERE RECOMMENDED. Cystocele, unspecified DISCUSSED FINDINGS, DX AND TX OPTIONS. OBTAIN RECORDS FROM DR HACKETT FOR OUR REVIEW. DISCUSSED POSSIBILITY OF GETTING A SECOND OPINION FROM ANOTHER UROLOGIST. Rectocele DISCUSSED FINDINGS A ND REASSURED PAT THAT RECTOCELE IS NOT BAD HER CYSTOCELE BUT WOULD ALSO BE REPAIRED. Encounter for screening for osteoporosis BONE DENSITY WAS ORDERED. Pending Test Test Name Order Date MAMMOGRAM, SCREENING 10/27/2023 BONE DENSITY 10/27/2023 MM Digital Mammo Screening 10/27/2023 Next Appt Details Follow Up: 1 Year, Reason: Provider Name:Va sánchez, 10/28/2024 10:00:00 AM, [address] [facility], [address], [place], [address], Progress Notes * SINAN DESHPANDEOB:[birth year] (68 yo F)Acc No.[id number]:10/27/2023 PROGRESS NOTES Patient:?JERAMY JORDAN Appointment Provider:?Va sánchez M.D. :1955???Age:68 Y???Sex:Female D ate:10/27/2023 Address:[address] [place] [address] Pcp:GEORGIE LAMBERT MD Subjective: * Chief Complaints: * ???HR 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 CANDY 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Ann ual NOVELTY CANDY 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 60-85+ * HPI: ???New/Follow-up Patient Consult:? S/P JEANNETTE IN 2008 FOR ADENOCARCINOMA OF THE ENDOMETRIUM.? OVARIES WERE CONSERVED THE DIAGNOSIS WAS INITIALLY ENDOMETRIAL HYPERPLASIA.?? SHE IS A AND NOT SEXUALLY ACTIVE. SHE IS KNOWN TO HAVE A CYSTOCELE AND WAS SEEN BY DR MCKINNON A FEW YEARS AGO.? SURGERY WAS RECOMMENDED BUT SHE REFUSED.? SHE HAS HAD RECURRENT UTI'S AND A FEELING OF NOT EMPTYING HER BLADDER WELL IN THE PAST SEVERAL MONTHS.? SHE WAS SEEN BY A UROLOGIST AT [facility], DR HACKETT AND HE RECOMMENDED SURGERY TOO.? THE PAT SAYS SHE WAS TOLD THIS SURGERY WOULD BE EXTENSIVE AND THAT SHE WOULD NEED ABOUT 6 TO 8 MONTHS TO RECOVER.? WE WILL GET HER RECORDS. HER LAST MAMMOGRAM DONE IN AUGUST 2022 SHOWED BREASTS ARE NOT DENSE AND WAS NORMAL. HER LAST PAP TEST IN 2013 WAS NEGATIVE AND HPV NEGATIVE.? SHE HAS NO HX OF ABNORMAL PAP TESTS. HER LAST BMD IN 2018 WAS NORMAL. SHE HAD A COLONOSCOPY DONE IN 2017 AND HAS AN APPT FOR ANOTHER ONE IN NOVEMBER 2023. PFIZER X 3. ???Annual:? Patient presents for annual exam, ages 60-85, postmenopausal. ?General Health Maintenance:?Current breast complaints:?no breast pain, mass, discharge, or skin changes ?Urinary problems:?patient reports no urinary health problems or bowel health problems ?Calcium intake:?takes adequate calcium via diet and supplementation ?Significant NOVELTY CANDY MAKER problems:?no significant graduate research assistant symptoms or problems * ROS:?general:?no?chest pain.?no?palpitations.?no?headache.?no?cough.?no?shortness of breath.?no?fever.?no?unexplained weight loss.?no?nausea/vomiting.?no?change in bowel movements.?no blood in stool.?no?genitourinary complaints.?no?skin complaints.? * Medical History:? 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 * OB History:?Total pregnancies?4.?Total living children?3.?NVD?3.? * Surgical History:?Colonoscop y Hysterectomy JEANNETTE Tonsillectomy Umbilical Herniography Variscose Vein Laser Left Knee Replacement 01/18/16Right Knee Replacement 09/19/16 * Hospitalization/Major Diagno stic Procedure:?3 Vaginal Deliveries See Surgical Hx Pnuemonia 02/2018Pancreatitis ? Reaction to 2nd Covid Vaccine 10/07/20 * Family History:?Mother: dece ased.?Father: , Dementia.?Paternal uncle: Stomach Cancer.?Maternal aunt: Liver Cancer.? * Social History:?Tobacco Use:?Tobacco Use/Smoking?Are you a?nonsmoker ???Sexual History:?Sexual History?Had sex in the past 12 months (vaginal, oral, or anal)?: No, Have you ever had a Sexually transmitted disease?: No.?Details of Sexual History?Are you sexually active??No ???Drugs/Alcohol:?Drugs?Have you used drugs other than those for medical reasons in the past 12 months??No ?Alcohol Screen (Audit-C)?Did you have a drink containing alcohol in the past year??Yes ?How often did you have a drink containing alcohol in the past year??Monthly or less (1 point) ?How many drinks did you have on a typical day when you were drinking in the past year??1 or 2 drinks (0 point) ?Points?1 ?Interpretation?Negative ???Miscellaneous:?Children: yes, 3. ?Domestic violence: no. ?Exercise: yes. ?Home smoke detector use: yes. ?Marital status: . ?Natural support system: yes. ?Occupation: Retired. ?Sexual abuse: no. ?Sexually active: no. ?Verbal abuse: no. * Medications:?TakingAspirin A dult Annie Vitamin D3 50 MCG (1999 UT) Capsule 1 capsule Orally Every other day One Daily Womens 50+ - Tablet as directed Orally Probiotic - Tablet Delayed Release as directed Orally Vitamin B Complex - Tablet as directed Orally Singulair 10 MG Tablet 1 tablet Orally Once a day Lisinopril 10 MG Tablet 1.5 tablet Orally daily at noon Symbicort 160-4.5 MCG/ACT Aerosol 2 puffs Inhalation twice daily Atorvastatin Calcium 10 MG Tablet Oral Meloxicam 7.5 MG Tablet Oral Clotrimazole-Betamethasone 1-0.05 % Cream APPLY 1 APPLICATION TO AFFECTED AREA EXTERNALLY TWICE A DAY FOR 14 DAYS Montelukast Sodium 10 MG Tablet TAKE 1 TABLET BY MOUTH EVERYDAY AT BEDTIME Oral Incruse Ellipta 62.5 MCG/ACT Aerosol Powder Breath Activated Inhalation Albuterol Sulfate (2.5 MG/3ML) 0.083% Nebulization Solution INHALE 3ML BY NEBULIZER EVERY 6 HOURS Inhalation oxyBUTYnin Chloride ER 10 MG Tablet Extended Release 24 Hour Oral Taking Aspirin Adult Taking Annie Taking Vitamin D3 50 MCG (1999 UT) Capsule 1 capsule Orally Every other day Taking One Daily Womens 50+ - Tablet as directed Orally Taking Probiotic - Tablet Delayed Release as directed Orally Taking Vitamin B Complex - Tablet as directed Orally Taking Singulair 10 MG Tablet 1 tablet Orally Once a day Taking Lisinopril 10 MG Tablet 1.5 tablet Orally daily at noon Taking Symbicort 160-4.5 MCG/ACT Aerosol 2 puffs Inhalation twice daily Taking Atorvastatin Calcium 10 MG Tablet Oral Taking Meloxicam 7.5 MG Tablet Oral Taking Clotrimazole-Betamethasone 1-0.05 % Cream APPLY 1 APPLICATION TO AFFECTED AREA EXTERNALLY TWICE A DAY FOR 14 DAYS Taking Montelukast Sodium 10 MG Tablet TAKE 1 TABLET BY MOUTH EVERYDAY AT BEDTIME Oral Taking Incruse Ellipta 62.5 MCG/ACT Aerosol Powder Breath Activated Inhalation Taking Albuterol Sulfate (2.5 MG/3ML) 0.083% Nebulization Solution INHALE 3ML BY NEBULIZER EVERY 6 HOURS Inhalation Taking oxyBUTYnin Chloride ER 10 MG Tablet Extended Release 24 Hour Oral DiscontinuedCalcium Citrate Chewy Bite 500-12.5 MG-MCG Tablet Chewable as directed Orally Zinc 50 MG Tablet 1 tablet Orally Once a day , Notes to Pharmacist: Unknown DoseMedication List reviewed and reconciled with the patientDiscontinued Calcium Citrate Chewy Bite 500-12.5 MG-MCG Tablet Chewable as directed Orally Discontinued Zinc 50 MG Tablet 1 tablet Orally Once a day , Notes to Pharmacist: Unknown DoseMedication List reviewed and reconciled with the patient * Allergies:?Bactrim: Hives - AllergyDiflucan: Hives - AllergySulfa Antibiotics: AllergyLactose (Intolerance)no[Allergies Verified] Objective: * Vitals:?Ht: 67 in, Wt: 261 l bs, BMI:40.87Index, BP: 128/68 mm Hg, Temp: 97.4 F. * Examination: ???General Exam: ?CONSTITUTIONAL:?NECK/THYROID:?RESPIRATORY:?Auscultation: clear to auscultation bilaterally, Respiratory Effort: normal.?CARDIOVASCULAR:?Auscultation: regular rate and rhythm.?BREAST, Right:?BREAST, Left:?GASTROINTESTINAL:?MUSCULOSKELETAL:?SKIN:?NEURO/PSYCH:?Genitourinary: ?EXTERNAL GENITALIA:?VAGINA:?BLADDER:?URETHRA:?CERVIX:?UTERUS:?ADNEXA:?ANUS AND PERINEUM:? Assessment: * Assessment: 1.?Encounter for gynecologic al examination (general) (routine) with abnormal findings - Z01.411?2.?Frequency of micturition - R35.0?3.?Encounter for screening mammogram for malignant neoplasm of breast - Z12.31?4.?Cystocele, unspecified - N81.10?5.?Rectocele - N81.6?6.?Encounter for screening for osteoporosis - Z13.820? Plan: * Treatment: 2.?Frequency of micturition?LAB: Urinalysis, Complete-[id number] ?LAB: Urine Culture, Routine-[id number] ?LAB: Urinalysis (Collection Date & Time - 10/27/2023) ? Value Reference Range ?NITRITE Neg * ?PH 5.0 * ?PROTEIN Trace * ?S.G 1.005 * ?WBC Trace * ?GLUCOSE Neg * ?KETONES Neg * ?UROBILINOGEN Neg * ?BILIRUBIN Neg * ?BLOOD Neg * DRENETTA Singleton 10/27/2023 11:37:42 AM EDT > U/A and Urine C/S Sent Notes: OFFICIAL UA AND URINE C/S??3.?Encounter for screening mammogram for malignant neoplasm of breast?Imaging: MM Digital Mammo Screening Notes: REGULAR MAMMOGRAMS AND SBE'S WERE RECOMMENDED.??4.?Cystocele, unspecified ? Notes: DISCUSSED FINDINGS, DX AND TX OPTIONS. OBTAIN RECORDS FROM DR HACKETT FOR OUR REVIEW. DISCUSSED POSSIBILITY OF GETTING A SECOND OPINION FROM ANOTHER UROLOGIST.?? 5.?Rectocele? Notes: DISCUSSED FINDINGS AND REASSURED PAT THAT RECTOCELE IS NOT BAD HER CYSTOCELE BUT WOULDALSO BE REPAIRED.??6.?Encounter for screening for osteoporosis? Notes: BONE DENSITY WAS ORDERED.?? * Imaging:? * ?Imaging: BONE DENSITY ?Imaging: MAMMOGRAM, SCREENING* * Procedure Codes:? * Preventive Medicine:? ??YOUR PREVENTIVE WELLNESS PLAN:?Osteoporosis prevention?Calcium, D, strength training.?Breast Cancer Screening (Mammogram):?annually.?Cervical Cancer Screening (Pap Smear):?q 3 years with HPV screen.?Colorectal Cancer Screening:?q 10 years.? * Follow Up:?1 Year * Images: Billing Information: * Visit Code:? 40805 Preventive Care Est Pt. Age 65 and over. * Procedure Codes:? * Sign off status: Completed true * Appointment Provider:?Va Collazo M.D. Date:?10/27/2023 Generated for Carmina guzman/Xavier/eTransmitting on:?07/26/2024 03:30 PM EST History and Physical Notes * HPI (History of Present Illness) Category Sub-Category Detail Notes Category Not es New/Follow-up Patient Consult S/P JEANNETTE IN 2008 FOR ADENOCARCINOMA OF THE ENDOMETRIUM. OVARIES WERE CONSERVED THE DIAGNOSIS WAS INITIALLY ENDOMETRIAL HYPERPLASIA. SHE IS A AND NOT SEXUALLY ACTIVE. SHE IS KNOWN TO HAVE A CYSTOCELE AND WAS SEEN BY DR MCKINNON A FEW YEARS AGO. SURGERY WAS RECOMMENDED BUT SHE REFUSED. SHE HAS HAD RECURRENT UTI'S AND A FEELING OF NOT EMPTYING HER BLADDER WELL IN THE PAST SEVERAL MONTHS. SHE WAS SEEN BY A UROLOGIST AT [facility], DR HACKETT AND HE RECOMMENDED SURGERY TOO. THE PAT SAYS SHE WAS TOLD THIS SURGERY WOULD BE EXTENSIVE AND THAT SHE WOULD NEED ABOUT 6 TO 8 MONTHS TO RECOVER. WE WILL GET HER RECORDS. HER LAST MAMMOGRAM DONE IN AUGUST 2022 SHOWED BREASTS ARE NOT DENSE AND WAS NORMAL. HER LAST PAP TEST IN 2013 WAS NEGATIVE AND HPV NEGATIVE. SHE HAS NO HX OF ABNORMAL PAP TESTS. HER LAST BMD IN 2018 WAS NORMAL. SHE HAD A COLONOSCOPY DONE IN 2017 AND HAS AN APPT FOR ANOTHER ONE IN NOVEMBER 2023. PFIZER X 3. Annual General Health Maintenance: Current breast complaints:: no breast pain, mass, discharge, or skin changes Urinary problems:: patient r eports no urinary health problems or bowel health problems Calcium intake:: takes adequ ate calcium via diet and supplementation Significant NOVELTY CANDY MAKER problems:: n o significant graduate research assistant symptoms or problems Examination Category Sub-Category Detail Notes Category Not es General Exam CONSTITUTIONAL: General Appearan ce:: alert, in no acute distress, normal, well nourished NECK/THYROID: Thyroid:: normal size and shape Inspection/Palpation:: normal RESPIRATORY: Auscultation: clear to auscultation bilaterally, Respiratory Effort: normal CARDIOVASCULAR: Auscultation: regula r rate and rhythm GASTROINTESTINAL: Hernias:: no hernias present, no inguinal adenopathy Liver and Spleen:: normal Abdomen:: no masses, nontender, nondiste nded MUSCULOSKELETAL: Inspection/Palpation:: no clubb ing, cyanosis, or edema SKIN: Skin:: normal NEURO/PSYCH: Orientation:: time , place, pers on Mood/Affect:: normal BREAST, Right: Inspection/Palpation :: no discharge, no masses present, no nipple retraction, no skin changes, no skin dimpling, no tenderness, no lymphadenopathy, no axillary mass, no axillary tenderness BREAST, Left: Inspection/Palpation :: no discharge, no masses present, no nipple retraction, no skin changes, no skin dimpling, no tenderness, no lymphadenopathy, no axillary mass, no axillary tenderness Genitourinary EXTERNAL GENITALIA: External Genitalia:: nor mal, no lesions VAGINA: Vagina:: cystocele p resent (3rd degree), rectocele present (1st degree) BLADDER: Bladder:: no mass, nontender URETHRA: Urethra:: no erythema or lesions present CERVIX: Cervix:: surgically absent UTERUS: Uterus:: surgically absent ADNEXA: Adnexa:: no masses, no tendernes s ANUS AND PERINEUM: Anus/Perineum:: visually norm al
--- OUTSIDE RECORDS SUMMARY | 2024-07-26 15:30 | XMS_ITS ---
Author Organization [facility] Address [address] [place] [address] Care Team Providers Care Flue Gas Analyst Name Role Phone PETRA PAULA, GEORGIE Primary Care Provider Va Thompson [phone] Encounters Encounter Location Date Provider Diagnosis [facility] [address] [place] [address] [address] [place] [address] 10/27/2023 Va Collazo Plan Of Treatment Next Appt Details Provider Name:Va sánchez, 10/28/2024 10:00:00 AM, [address], [address], [place], [address], Progress Notes * SINAN DESHPANDEOB:[birth year] (68 yo F)Acc No.[id number]:10/27/2023 Patient:?JORDAN DESHPANDE :1955???Age:68 Y???Sex:Female Address:[address] [place] [address], , [place], [address] * true * Date:? Generated for Printi ng/Xavier/eTransmitting on:?07/26/2024 03:29 PM EST
== END 2024-07-26 15:02 | disposition home or self-care (01) ==
PROVIDERS: PCP Internal Medicine; Visit Provider Hospitalist
DX: J45.40 Moderate persistent asthma, uncomplicated (principal); G47.33 Obstructive sleep apnea (adult) (pediatric); R06.00 Dyspnea, unspecified; J44.89 Other specified chronic obstructive pulmonary disease
CPT/HCPCS: 99214

== ENCOUNTER → 2024-07-26 14:36 | Outpatient (BNVA) | payer MEDICARE, SELFPAY | PROVIDERS: PCP Internal Medicine; Visit Provider Hospitalist | DX: J44.89 Other specified chronic obstructive pulmonary disease (principal); J45.40 Moderate persistent asthma, uncomplicated; G47.33 Obstructive sleep apnea (adult) (pediatric); R06.00 Dyspnea, unspecified; Z99.89 Dependence on other enabling machines and devices | CPT/HCPCS: 99212 ==

== ENCOUNTER 2025-02-28 10:15 | Outpatient (AMB) | payer MEDICARE, SELFPAY ==
--- NOTE | 2025-02-28 10:16 | MHC.OFFVIS ---
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 The patient has been using maintenance therapy. However, continues to be symptomatic with dyspnea on exertion. Moderate severity. She is concerned about her weight. She has tried to lose weight and she has a hard time doing so. Specially since she has 0 out of breath. Apparently back in September 2020 the patient did get her vaccination for COVID-19. After the 2nd dose she developed significant abdominal discomfort and shortness of breath. She was taken to the ER where she did have a CT scan of the chest which ruled out pulmonary emboli although it did demonstrate she had evidence of pancreatitis. Thought to be related to the vaccination. In the meantime I did look at the CT scan myself and there appears to be significant amount of mosaic pattern and air trapping consistent with small airways disease and has some degree of pneumonitis. The patient has been taking her Symbicort with good adherence. She does not take any long-acting muscarinic antagonist this time. This will be an option for her. We did look at her blood work as well demonstrating evidence of eosinophilia suggesting eosinophilic phenotype which could correspond to allergic asthma. The patient had allergy testing many years ago. The patient may be a good candidate for biologic therapy if she continues to be symptomatic with her asthma. The patient also has a history of sleep apnea. She has been on CPAP now for many months. The therapy has been affecting beneficial. She does have a nasal mask or nasal pillows. She does complaint of a dry mouth. We talked about the importance of using a chinstrap. She is going to bring her CPAP machine to the next visit. 11/21/2021 the patient is here for a pulmonary follow-up visit. Patient overall is doing better from a respiratory status. She continues use her respiratory medications with good effect. She has not required her rescue inhaler. She she was curious about her CT scan of the chest. Again, demonstrated some degree of pneumonitis and also was a pattern suggestive of small airways disease. Will plan to follow-up with a chest x-ray during the next visit. It is reassuring that her symptoms are improving. She did bring her CPAP. The CPAP therapy has been affecting beneficial. She has been using it every night. We downloaded the data and she averaged VII hours. . AHI was 0.5. She has been having issues with a dry mouth. I decreased her temperature from 84 for to 78 degrees and also change her humidity back to auto. I did she will her heart is changes to manual if she wanted to go back to her previous settings. Her asthma seems to be responding well to the current therapy which includes Symbicort the Singulair and the allergy therapy. 05/05/2022 the patient is here for pulmonary follow-up visit. She is doing a little better. Although, she does complaint of dyspnea on exertion. Minimal activity makes her very short of breath. She also staying with other musculoskeletal issues that are limiting her physical activity. She has been using the Symbicort with good effect. Although she has been noticing she has been using her rescue inhaler more often also during the daytime. We did review her blood work demonstrating evidence elevations in the IgE suggesting allergic asthma. We did talk about biologic therapy such as Xolair. Her eosinophils were normal. I did give her some reading material for her to take with her. In the meantime will optimize respiratory therapy by adding Incruse to her respiratory therapy. I am hopeful that she gets relief and is able to improve her symptoms without any biologic therapy. If however she continues to have symptoms will consider biologic therapy during her next visit. She continues use her CPAP. CPAP therapy continues to be affecting beneficial. She does use it for more than 4 hours a night. She does have significant daytime drowsiness. She is also feeling tired. She is wondering if it is from her sleep apnea not being treated. She does have an old machine more than 6 years old. We can see about switching at this time. Her AHI appears to be well. Will request a replacement machine at this time. in the meantime she also follow-up with primary care doctor to evaluate other etiologies for chronic fatigue. 08/06/2022 the patient is here for a pulmonary follow-up visit. Overall the patient is doing well. She is working on her lifestyle changes. She started the diet. She is looking to going back to the gym and exercising as she has gained weight. From a CPAP standpoint she has been using a new CPAP. I do not have access to it right now. She has been using more than 4 hours a night per report. The patient does complaint of a dry mouth. Understandably the new rest pain machine has a very small water chamber. Therefore I did given instructions on how to adjust doubt temperature and the humidity to make sure that it is enough therapy for the night. The patient does use a full mask already. No significant issues with mask fitting. She has been getting supplies readily available to her [employer] company. In the meantime she has increased asthma symptoms. She does have chest tightness. She has been using Symbicort. She also was prescribed Incruse. The patient does have increased shortness of breath and chest tightness specially when exercising. I did recommend she can use her rescue inhaler as needed but also before exercise. The patient also has a peak flow and I did provide her a new 1 in order for her to monitor her peak flows and address any issues. As far as biologic therapies the patient does have an elevated IgE and also has significant allergies. The patient will benefit from Xolair at this time. Will have her do repeat the blood work since has been almost a year to see the actual dose that she will benefit from. Once the patient starts Xolair we can minimize the use of prednisone and hopefully improve her quality of life and exercise capacity. 12/08/2022 the patient is here for a pulmonary follow-up visit. Overall she is doing a little better. She continues on the Symbicort. The addition of the Incruse was effective for her. She feels like is helping her breathing. Although, she still feels shortness of breath with activity. She also complains of a cough sometimes productive in nature. We did talk about asthmatic bronchitis and chronic bronchitis and potentially starting her on therapy for the congestion. However, it will cause additional polypharmacy. She needs to start using the nebulizer did not provide better bronchopulmonary hygiene with hopes of minimizing additional medications. If the patient is no better with increasing nebulized therapy and continue respiratory therapy we can consider starting biologic therapy such as Xolair to help with her significant allergies. Her IgE was already noted to be elevated and therefore she will respond well to Xolair. The other option if her allergy testing is not significantly elevated is to consider Daliresp. Therefore should continue with therapy start bronchopulmonary hygiene with the nebulizer and will get blood work prior to the next visit 07/03/2023 the patient is here for a sick visit. Apparently back late May she started having worsening respiratory symptoms. She went to an Urgent Care was diagnosed with bronchitis and given a Z-Chivo. Her symptoms continued to worsen and she went to see her primary care doctor at that point she was given some prednisone for worsening cough in addition to additional antibiotics, doxycycline for 7 days. Her cough is significantly she ended up getting cough syrup with codeine. She had a very croupy cough. Therefore protests was thought about and at that point she already was treated with azithromycin. She did have a chest x-ray read as no acute disease also personally reviewed the x-ray agree with the results. The patient was then placed another course of prednisone and as 3rd course of antibiotics with Augmentin as she was not getting any better. Today she has come in and she is still on 40 mg of prednisone and she still having some increasing cough and shortness of breath and chest tightness. She has been using her nebulizer. I did encourage her to use it more. I did given 2 DuoNeb treatments in the office because of her bronchospasms. The patient also received Solu-Medrol 125 mg IM x1. Appears that she likely has a component of postviral bacterial lower respiratory infection. I do agree with the Augmentin. Will add doxycycline to the regimen just to treat more further the possibility of staph and strep. If the patient is no better she is able to bring up a sputum for culture that will be helpful as well. In meantime she will continue with Symbicort inhaler. 11/27/2023 the patient is here for a pulmonary follow-up visit. The patient is still having hard time with her asthma. Continues have wheezing at times. Moderate severity. Also shortness breath with activity. She also has a nonproductive cough. Her inhalers have not been completely effective. Will go ahead and maximize her respiratory therapy by switching over to Trelegy. Also with a free can chronic bronchitis and frequent exacerbations she will be a good candidate for Daliresp. Explained to her the side effects and she can start a low dose and then slowly increase it to hopefully reach the therapeutic dose of 100 mcg. The patient is also concerned about her weight. She is considering being evaluated for medical weight management. She continues use her CPAP every night. CPAP therapy has been affecting beneficial. She has been on CPAP for many years. She can not sleep without it. When she does sleep without it she does wake up short of breath. 05/06/2024 the patient is here for pulmonary follow-up visit. The patient overall has been doing okay although she has had a worsening cough. She apparently had surgery and after the surgery she started developing irritation to the throat and worsening cough. She already has evidence of a croupy cough and that just subsequently got worse. She went to her primary care doctor recommended she come in here. She continues on the Trelegy inhaler. She continues on the low-dose Daliresp. On exam she does have congestion in the chest and also some rhonchi and some expiratory wheezing with some post exhalation coughing. Therefore will go ahead and treated with doxycycline and a Medrol pack to help her with the inflammatory changes. Also increase the Daliresp up to the 500 mcg dose which is the therapeutic dose. The patient also needs a cough medication to settle down the coughs to allow the areas to heal. Will follow-up in 3 or 4 months. I which point she continues to have symptoms will have to consider biologic therapies. If any issues arise prior to the next visit she will call for an earlier assessment. 07/26/2024 the patient is here for a pulmonary follow-up visit. Overall she is doing better. She is tolerating the higher dose Daliresp without any significant adverse effects. In addition to that she continues on her Trelegy. Seems to be improving her symptoms. She still has dyspnea on exertion moderate severity. She does use her rescue inhaler while exercising. I did advise her that she can also use it prior to exercise. She also continues with CPAP therapy. CPAP therapy has been affecting beneficial. We did download the data and is within therapeutic range. She does use it for more than 4 hours and will continue to request supplies for the patient. At this point the patient is doing better will continue to assess her symptoms specially he allergy symptoms. She does qualify for biologics including Xolair but at this point the patient is clinically doing well so will hold off. Will reassess again in the fall when her symptoms are worse typically. If she has any issues before the next visit she will call for an earlier assessment. 02/28/2025 the patient is here for pulmonary follow-up visit. Overall the patient has been doing okay. Recently she did have worsening respiratory symptoms since sinus congestion and she was placed on prednisone and also given Augmentin. Currently feeling little bit better on the prednisone. The patient continues use the Trelegy continues use her rescue inhaler more than twice a week. She does have significant allergies and now in the fall is aware season. Will go ahead and measure again her IgE levels and eosinophils. If they continue to be elevated the patient will be a good candidate for biologic therapy. Patient is already maximize her respiratory therapy. We need to minimize the use of prednisone. Therefore when she completes this course of prednisone will go ahead and measure her allergy levels and see if she is a candidate. In the meantime she continues uses CPAP. CPAP therapy has been affecting beneficial. Her AHI is down to 0.2. She does get a dry mouth. I switched back her PAP machine to auto humidity and level 4 to 5 on the humidity for now. She will call if she has any issues with that. Otherwise will follow-up in 6 months. [facility] Medical History (Updated 02/28/25 @ 10:45 by Anival Hook MD) Chronic allergic rhinitis Asthma-COPD overlap syndrome Chronic cough Obstructive sleep apnea Morbid obesity Lactose intolerance History of uterine cancer Anxiety Hyperlipidemia Hypertension Dyspnea Asthma Surgical History (Updated 09/23/21 @ 15:28 by Marj Lepe PA-C) History of surgery on left wrist (~1977) History of umbilical hernia repair (~1979) History of appendectomy (~02/2014) History of total right knee replacement (TKR) (~08/2016) History of total left knee replacement (TKR) (~12/2015) History of partial hysterectomy (~10/2010) Social History Patient Tobacco Use Status: Never used Tobacco Review of Systems Const Denies daytime sleepiness and Reports fatigue Eyes Denies change in vision ENT Denies change in voice, Reports nasal congestion and Reports nasal discharge Card Denies chest pain and Reports dyspnea on exertion Resp Reports cough, Denies hemoptysis, Reports dyspnea on exertion and Reports wheezing GI Reports no additional complaints Musc Reports no additional complaints Skin/Breast Denies rash Neuro Reports no additional complaints Endo Reports fatigue Betito/Lymph Denies easy bruising Aller/Immun Reports wheezing Physical Exam Vital Signs: Last Vital Signs Pulse 80 02/28/25 10:17 BP 110/56 L 02/28/25 10:17 Pulse Ox 96 02/28/25 10:17 Oxygen Delivery Method Room Air 02/28/25 10:17 BMI result Body Mass Index 39.1 Const General: alert Neck Neck: Yes normal visual inspection, Yes full ROM and Yes no lymphadenopathy Chest Chest palpation & inspection: normal inspection of the chest Resp Effort & Inspection: normal respiratory effort and prolonged expiratory phase Auscultation: diminished lung sounds Cardio Rate: regular rate Rhythm: regular rhythm Heart sounds: S1 normal heart sound present and S2 normal heart sound present GI Palpation (GI): Soft to palpation and nontender Auscultation: normal bowel sounds Skin General skin exam: rashes and/or lesions noted Assessment & Plan Assessment & Plan (1) Asthma: Code(s): J45.909 - Unspecified asthma, uncomplicated Category: Medical Qualifiers: Asthma complication type: uncomplicated Asthma persistence: persistent Asthma severity: moderate Qualified Code(s): J45.40 - Moderate persistent asthma, uncomplicated (2) Obstructive sleep apnea: Comment: (mild [place] on 04/18/2015 Sleep test) Code(s): G47.33 - Obstructive sleep apnea (adult) (pediatric) Category: Medical (3) Dyspnea: Code(s): R06.00 - Dyspnea, unspecified Category: Medical Qualifiers: Dyspnea type: dyspnea on exertion Qualified Code(s): R06.00 - Dyspnea, unspecified (4) Asthma-COPD overlap syndrome: Code(s): J44.89 - Other specified chronic obstructive pulmonary disease Category: Medical (5) Chronic allergic rhinitis: Code(s): J30.9 - Allergic rhinitis, unspecified Category: Medical Plan Trelegy 200 conitnue Daliresp 500 KERRI as needed Continue PAP therapty 8-12, The patient continues to be symptomatic. AirSense 11 consider starting Bilogic therapy, elevated IgE and Eosinophils, Will be a good candidate for Dupixent comeplete Prednisone taper Weight management F/U 6 months Orders: Orders Complete Blood Count Auto Diff Today J30.9 - Allergic rhinitis, unspecified, J45.40 - Moderate persistent asthma, uncomplicated Immunoglobulin E Today J30.9 - Allergic rhinitis, unspecified, J45.40 - Moderate persistent asthma, uncomplicated Immunoglobulins,IgG IgA IgM Today J30.9 - Allergic rhinitis, unspecified, J45.40 - Moderate persistent asthma, uncomplicated Erythrocyte Sedimentation Rate Today J30.9 - Allergic rhinitis, unspecified, J45.40 - Moderate persistent asthma, uncomplicated Coding Level of Care Code Est Pt Level 4 (15284) Complex EM visit Add On G2211 Diagnoses Moderate persistent asthma without complication J45.40 Asthma complication type: uncomplicated Asthma persistence: persistent Asthma severity: moderate Obstructive sleep apnea G47.33 Dyspnea on exertion R06.00 Dyspnea type: dyspnea on exertion Asthma-COPD overlap syndrome J44.89 Chronic allergic rhinitis J30.9 Time Spent (min) 17
[2025-02-28 10:17] VITALS: BP 110/56; PULSE 80; O2SAT 96; BMI 39.1
== END 2025-02-28 10:51 | disposition home or self-care (01) ==
LOC: HO.HPS 10:16
PROVIDERS: PCP Internal Medicine; Visit Provider Hospitalist
DX: J45.40 Moderate persistent asthma, uncomplicated (principal); G47.33 Obstructive sleep apnea (adult) (pediatric); R06.00 Dyspnea, unspecified; J44.89 Other specified chronic obstructive pulmonary disease; J30.9 Allergic rhinitis, unspecified
CPT/HCPCS: 99214; G2211

== ENCOUNTER → 2025-02-28 10:15 | Outpatient (BNVA) | payer MEDICARE, SELFPAY | PROVIDERS: PCP Internal Medicine; Visit Provider Hospitalist | DX: J44.89 Other specified chronic obstructive pulmonary disease (principal); J45.40 Moderate persistent asthma, uncomplicated; G47.33 Obstructive sleep apnea (adult) (pediatric); R06.00 Dyspnea, unspecified; J30.9 Allergic rhinitis, unspecified | CPT/HCPCS: 99212 ==

== ENCOUNTER 2025-03-16 08:43 | Outpatient (AMB) | payer MEDICARE, SELFPAY ==
--- OUTSIDE RECORDS SUMMARY | 2024-10-28 06:20 | XMS_ITS ---
Author Organization [facility] Address [address] [facility] [address] [place] [address] Care Team Providers Care Bakelite Molder Name Role Phone PETRA PAULA, GEORGIE Primary Care Provider Va Thompson Unavailable [phone] Allergies Allergen (clinical drug ingredient) Drug/Non Drug Allergy documented on EMR Reaction Allergy Type Onset Date Status sulfamethoxazole / trimethoprim Bactrim Hives Drug Allergy Active fluconazole Diflucan Hives Drug Allergy Activ e lactose Lactose (Intolerance) Unknown Drug Allergy Active Substance with sulfonamide structure and antibacterial mechanism of action (substance) Sulfa Antibiotics Unknown Drug Allergy A ctive REASON FOR VISIT HR MEDICARE PE Social History Tobacco Use: Social History Observation Description Date Details (start date - stop date) Never Smoker NA - NA AUDIT-C (Standard) Question Answer Notes Did you have a drink contain ing alcohol in the past year? Yes How often did you have a dri nk containing alcohol in the past year? Monthly or less (1 point) How many drinks did you have on a typical day when you were drinking in the past year? 1 or 2 drinks (0 point) How often did you have six o r more drinks on one occasion in the past year? Never (0 point) Points 1 Interpretation Negative Tobacco Control (Standard) Question Answer Notes Tobacco use: Nonsmoker Encounters Encounter Location Date Provider Diagnosis [facility] [address] [place] [address] 10/28/2024 Va Collazo Plan Of Treatment Next Appt Details Provider Name:Va sánchez, 04/12/2025 02:40:00 PM, [address] [place] [address], [facility] [address], [place], [address], Progress Notes * SINAN DESHPANDEOB:[birth year] (69 yo F)Acc No.[id number]:10/28/2024 PROGRESS NOTES Patient: JORDAN MEJÍA Appointment Provider: hCantel Collazo M.D. :1955 A ge:69 Y S ex:Female Date:10/28/2024 Address:[address] [place] [address] Pcp:GEORGIE LAMBERT MD Subjective: * Chief Complaints: * 1 . HR MEDICARE PE. * Medical History: C ellulitis, Malignant neoplasm of corpus uteri, unspecified, Unspecified asthma, uncomplicated, Menopausal and female climacteric states, Cystocele, unspecified, Unspecified urinary incontinence, Rectocele, Interstitial cystitis (chronic) without hematuria, Other hypertrophic disorders of the skin, Vennis Reflux, Morbid (severe) obesity due to excess calories, Malignant neoplasm of endometrium, Postmenopausal atrophic vaginitis, Pelvic and perineal pain. 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 S exual activity n ot currently sexually active. L ast Pap Smear: . M ammogram: Breast Tissue is Almost Entirely Fatty, 09/23/22 < 50% density, 08/01/21 < 50% density, 05/25/20 < 50% density, 08/17/18 < 50% density, 03/19/16 < 50% density, 11/28/14, < 50% density. L MP and menses H ysterectomy. H ysterectomy: Y es, JEANNETTE. C olonoscopy 2007. B one Density: Normal, 08/17/18. * OB History: T otal pregnancies 4 . T otal living children 3 . N VD 3 . * Social History: T obacco Use: T obacco Control (Standard) T obacco use: N onsmoker S exual History: S exual History H ad sex in the past 12 months (vaginal, oral, or anal)?: No, Have you ever had a Sexually transmitted disease?: No. Details of Sexual History A re you sexually active? N o D rugs/Alcohol: D rugs H ave you used drugs other than those for medical reasons in the past 12 months? N o M iscellaneous: C faydren: yes, 3. Domestic violence: no. Exercise: yes. Home smoke detector use: yes. Marital status: . Natural support system: yes. Occupation: Retired. Sexual abuse: no. Sexually active: no. Verbal abuse: no. D rug/Alcohol: A JUVE-C (Standard) D id you have a drink containing alcohol in the past year? Y es H ow often did you have a drink containing alcohol in the past year? M onthly or less (1 point) H ow many drinks did you have on a typical day when you were drinking in the past year? 1 or 2 drinks (0 point) H ow often did you have six or more drinks on one occasion in the past year? N ever (0 point) P oints 1 I nterpretation N egative * Allergies: B actrim: Hives - Allergy, Diflucan: Hives - Allergy, Sulfa Antibiotics: Allergy, Lactose (Intolerance). Objective: * Vitals: Assessment: Plan: * Treatment: * Images: Billing Information: * Visit Code: * Procedure Codes: * Electronic signature of Aicha Collazo MD on 03/16/2025 at 09:59 AM EDT Sign off status: Pending * Appointment Provider: Chantel Collazo M.D. Date: 0 10/28/2024 Generated for Carmina guzman/Xavier/Anujitting on: 0 03/16/2025 09:59 AM EDT
[2025-03-16 08:46] VITALS: BP 136/60; PULSE 94; O2SAT 97; BMI 39.3
--- NOTE | 2025-03-16 08:46 | MHC.OFFVIS ---
Vital Signs 03/16/25 08:46 Height 5 ft 6 in Weight 243 lb 9.773 oz BMI 39.3 BP 136/60 Blood Pressure Location Lt brachial Position Sitting Pulse 94 Pulse Source Pulse Oximeter Pulse Oximetry (%) 97 Oxygen Delivery Method Room Air Intake Visit Reasons: asthma exacerbation Accompanied by: Self / Same As Patient Allergies meperidine (From Demerol) Allergy (Severe, Verified 03/16/25 08:50) Unknown Sulfa (Sulfonamide Antibiotics) Allergy (Severe, Verified 03/16/25 08:50) Hives sulfamethoxazole (From Bactrim) Allergy (Severe, Verified 03/16/25 08:50) Hives trimethoprim (From Bactrim) Allergy (Severe, Verified 03/16/25 08:50) Hives Lactose Intolerance Adverse Reaction (Severe, Uncoded 07/26/24 14:43) Abdominal Pain HPI Comments Details: The patient is a 69-year-old woman with known history of asthma who apparently has been developing worsening shortness of breath for the last year. The patient has been using maintenance therapy. However, continues to be symptomatic with dyspnea on exertion. Moderate severity. She is concerned about her weight. She has tried to lose weight and she has a hard time doing so. Specially since she has 0 out of breath. Apparently back in September 2020 the patient did get her vaccination for COVID-19. After the 2nd dose she developed significant abdominal discomfort and shortness of breath. She was taken to the ER where she did have a CT scan of the chest which ruled out pulmonary emboli although it did demonstrate she had evidence of pancreatitis. Thought to be related to the vaccination. In the meantime I did look at the CT scan myself and there appears to be significant amount of mosaic pattern and air trapping consistent with small airways disease and has some degree of pneumonitis. The patient has been taking her Symbicort with good adherence. She does not take any long-acting muscarinic antagonist this time. This will be an option for her. We did look at her blood work as well demonstrating evidence of eosinophilia suggesting eosinophilic phenotype which could correspond to allergic asthma. The patient had allergy testing many years ago. The patient may be a good candidate for biologic therapy if she continues to be symptomatic with her asthma. The patient also has a history of sleep apnea. She has been on CPAP now for many months. The therapy has been affecting beneficial. She does have a nasal mask or nasal pillows. She does complaint of a dry mouth. We talked about the importance of using a chinstrap. She is going to bring her CPAP machine to the next visit. 11/21/2021 the patient is here for a pulmonary follow-up visit. Patient overall is doing better from a respiratory status. She continues use her respiratory medications with good effect. She has not required her rescue inhaler. She she was curious about her CT scan of the chest. Again, demonstrated some degree of pneumonitis and also was a pattern suggestive of small airways disease. Will plan to follow-up with a chest x-ray during the next visit. It is reassuring that her symptoms are improving. She did bring her CPAP. The CPAP therapy has been affecting beneficial. She has been using it every night. We downloaded the data and she averaged VII hours. . AHI was 0.5. She has been having issues with a dry mouth. I decreased her temperature from 84 for to 78 degrees and also change her humidity back to auto. I did she will her heart is changes to manual if she wanted to go back to her previous settings. Her asthma seems to be responding well to the current therapy which includes Symbicort the Singulair and the allergy therapy. 05/05/2022 the patient is here for pulmonary follow-up visit. She is doing a little better. Although, she does complaint of dyspnea on exertion. Minimal activity makes her very short of breath. She also staying with other musculoskeletal issues that are limiting her physical activity. She has been using the Symbicort with good effect. Although she has been noticing she has been using her rescue inhaler more often also during the daytime. We did review her blood work demonstrating evidence elevations in the IgE suggesting allergic asthma. We did talk about biologic therapy such as Xolair. Her eosinophils were normal. I did give her some reading material for her to take with her. In the meantime will optimize respiratory therapy by adding Incruse to her respiratory therapy. I am hopeful that she gets relief and is able to improve her symptoms without any biologic therapy. If however she continues to have symptoms will consider biologic therapy during her next visit. She continues use her CPAP. CPAP therapy continues to be affecting beneficial. She does use it for more than 4 hours a night. She does have significant daytime drowsiness. She is also feeling tired. She is wondering if it is from her sleep apnea not being treated. She does have an old machine more than 6 years old. We can see about switching at this time. Her AHI appears to be well. Will request a replacement machine at this time. in the meantime she also follow-up with primary care doctor to evaluate other etiologies for chronic fatigue. 08/06/2022 the patient is here for a pulmonary follow-up visit. Overall the patient is doing well. She is working on her lifestyle changes. She started the diet. She is looking to going back to the gym and exercising as she has gained weight. From a CPAP standpoint she has been using a new CPAP. I do not have access to it right now. She has been using more than 4 hours a night per report. The patient does complaint of a dry mouth. Understandably the new rest pain machine has a very small water chamber. Therefore I did given instructions on how to adjust doubt temperature and the humidity to make sure that it is enough therapy for the night. The patient does use a full mask already. No significant issues with mask fitting. She has been getting supplies readily available to her [employer] company. In the meantime she has increased asthma symptoms. She does have chest tightness. She has been using Symbicort. She also was prescribed Incruse. The patient does have increased shortness of breath and chest tightness specially when exercising. I did recommend she can use her rescue inhaler as needed but also before exercise. The patient also has a peak flow and I did provide her a new 1 in order for her to monitor her peak flows and address any issues. As far as biologic therapies the patient does have an elevated IgE and also has significant allergies. The patient will benefit from Xolair at this time. Will have her do repeat the blood work since has been almost a year to see the actual dose that she will benefit from. Once the patient starts Xolair we can minimize the use of prednisone and hopefully improve her quality of life and exercise capacity. 12/08/2022 the patient is here for a pulmonary follow-up visit. Overall she is doing a little better. She continues on the Symbicort. The addition of the Incruse was effective for her. She feels like is helping her breathing. Although, she still feels shortness of breath with activity. She also complains of a cough sometimes productive in nature. We did talk about asthmatic bronchitis and chronic bronchitis and potentially starting her on therapy for the congestion. However, it will cause additional polypharmacy. She needs to start using the nebulizer did not provide better bronchopulmonary hygiene with hopes of minimizing additional medications. If the patient is no better with increasing nebulized therapy and continue respiratory therapy we can consider starting biologic therapy such as Xolair to help with her significant allergies. Her IgE was already noted to be elevated and therefore she will respond well to Xolair. The other option if her allergy testing is not significantly elevated is to consider Daliresp. Therefore should continue with therapy start bronchopulmonary hygiene with the nebulizer and will get blood work prior to the next visit 07/03/2023 the patient is here for a sick visit. Apparently back late May she started having worsening respiratory symptoms. She went to an Urgent Care was diagnosed with bronchitis and given a Z-Chivo. Her symptoms continued to worsen and she went to see her primary care doctor at that point she was given some prednisone for worsening cough in addition to additional antibiotics, doxycycline for 7 days. Her cough is significantly she ended up getting cough syrup with codeine. She had a very croupy cough. Therefore protests was thought about and at that point she already was treated with azithromycin. She did have a chest x-ray read as no acute disease also personally reviewed the x-ray agree with the results. The patient was then placed another course of prednisone and as 3rd course of antibiotics with Augmentin as she was not getting any better. Today she has come in and she is still on 40 mg of prednisone and she still having some increasing cough and shortness of breath and chest tightness. She has been using her nebulizer. I did encourage her to use it more. I did given 2 DuoNeb treatments in the office because of her bronchospasms. The patient also received Solu-Medrol 125 mg IM x1. Appears that she likely has a component of postviral bacterial lower respiratory infection. I do agree with the Augmentin. Will add doxycycline to the regimen just to treat more further the possibility of staph and strep. If the patient is no better she is able to bring up a sputum for culture that will be helpful as well. In meantime she will continue with Symbicort inhaler. 11/27/2023 the patient is here for a pulmonary follow-up visit. The patient is still having hard time with her asthma. Continues have wheezing at times. Moderate severity. Also shortness breath with activity. She also has a nonproductive cough. Her inhalers have not been completely effective. Will go ahead and maximize her respiratory therapy by switching over to Trelegy. Also with a free can chronic bronchitis and frequent exacerbations she will be a good candidate for Daliresp. Explained to her the side effects and she can start a low dose and then slowly increase it to hopefully reach the therapeutic dose of 100 mcg. The patient is also concerned about her weight. She is considering being evaluated for medical weight management. She continues use her CPAP every night. CPAP therapy has been affecting beneficial. She has been on CPAP for many years. She can not sleep without it. When she does sleep without it she does wake up short of breath. 05/06/2024 the patient is here for pulmonary follow-up visit. The patient overall has been doing okay although she has had a worsening cough. She apparently had surgery and after the surgery she started developing irritation to the throat and worsening cough. She already has evidence of a croupy cough and that just subsequently got worse. She went to her primary care doctor recommended she come in here. She continues on the Trelegy inhaler. She continues on the low-dose Daliresp. On exam she does have congestion in the chest and also some rhonchi and some expiratory wheezing with some post exhalation coughing. Therefore will go ahead and treated with doxycycline and a Medrol pack to help her with the inflammatory changes. Also increase the Daliresp up to the 500 mcg dose which is the therapeutic dose. The patient also needs a cough medication to settle down the coughs to allow the areas to heal. Will follow-up in 3 or 4 months. I which point she continues to have symptoms will have to consider biologic therapies. If any issues arise prior to the next visit she will call for an earlier assessment. 07/26/2024 the patient is here for a pulmonary follow-up visit. Overall she is doing better. She is tolerating the higher dose Daliresp without any significant adverse effects. In addition to that she continues on her Trelegy. Seems to be improving her symptoms. She still has dyspnea on exertion moderate severity. She does use her rescue inhaler while exercising. I did advise her that she can also use it prior to exercise. She also continues with CPAP therapy. CPAP therapy has been affecting beneficial. We did download the data and is within therapeutic range. She does use it for more than 4 hours and will continue to request supplies for the patient. At this point the patient is doing better will continue to assess her symptoms specially he allergy symptoms. She does qualify for biologics including Xolair but at this point the patient is clinically doing well so will hold off. Will reassess again in the fall when her symptoms are worse typically. If she has any issues before the next visit she will call for an earlier assessment. 02/28/2025 the patient is here for pulmonary follow-up visit. Overall the patient has been doing okay. Recently she did have worsening respiratory symptoms since sinus congestion and she was placed on prednisone and also given Augmentin. Currently feeling little bit better on the prednisone. The patient continues use the Trelegy continues use her rescue inhaler more than twice a week. She does have significant allergies and now in the fall is aware season. Will go ahead and measure again her IgE levels and eosinophils. If they continue to be elevated the patient will be a good candidate for biologic therapy. Patient is already maximize her respiratory therapy. We need to minimize the use of prednisone. Therefore when she completes this course of prednisone will go ahead and measure her allergy levels and see if she is a candidate. In the meantime she continues uses CPAP. CPAP therapy has been affecting beneficial. Her AHI is down to 0.2. She does get a dry mouth. I switched back her PAP machine to auto humidity and level 4 to 5 on the humidity for now. She will call if she has any issues with that. Otherwise will follow-up in 6 months. 03/16/2025 the patient is here for a pulmonary follow-up visit. The patient is here for sick visit. She has not been feeling any better. She did see her primary care doctor she was placed on doxycycline in addition to prednisone. Her cough is pretty significant. Sometimes barky in nature. Worse at nighttime. Moderate to severe. She has a hard time sleeping. The codeine does help for few hours. She has not really felt any better. Still struggling to breathe with significant chest tightness and wheezing. She is using her nebulizer. Although sometimes her nebulizer makes her cough more. On exam she is having some issues with the croupy cough suggesting of laryngeal tracheitis. The patient did have a chest x-ray which I personally reviewed demonstrating no evidence of airspace disease although appears to have increased markings suggesting a bronchitis. Will go ahead and add azithromycin to her regimen to make sure that we are treating her for pertussis. In addition to that she will get Solu-Medrol today and then a slower lower dose of prednisone that she can take for little bit longer period of time. The patient will also continue with the cough medication. The patient will call next week for an update. [facility] Medical History (Updated 03/16/25 @ 20:52 by Anival Hook MD) Chronic allergic rhinitis Asthma-COPD overlap syndrome Chronic cough Obstructive sleep apnea Morbid obesity Lactose intolerance History of uterine cancer Anxiety Hyperlipidemia Hypertension Dyspnea Asthma Surgical History (Updated 09/23/21 @ 15:28 by Marj Lepe PA-C) History of surgery on left wrist (~1977) History of umbilical hernia repair (~1979) History of appendectomy (~02/2014) History of total right knee replacement (TKR) (~08/2016) History of total left knee replacement (TKR) (~12/2015) History of partial hysterectomy (~10/2010) Social History Patient Tobacco Use Status: Never used Tobacco Review of Systems Const Denies daytime sleepiness and Reports fatigue Eyes Denies change in vision ENT Denies change in voice, Reports nasal congestion and Reports nasal discharge Card Denies chest pain, Reports dyspnea and Reports dyspnea on exertion Resp Reports cough, Denies hemoptysis, Reports dyspnea, Reports dyspnea on exertion and Reports wheezing GI Reports no additional complaints Musc Reports no additional complaints Skin/Breast Denies rash Neuro Reports no additional complaints Endo Reports fatigue Betito/Lymph Denies easy bruising Aller/Immun Reports wheezing Physical Exam Vital Signs: Last Vital Signs Pulse 94 03/16/25 08:46 BP 136/60 03/16/25 08:46 Pulse Ox 97 03/16/25 08:46 Oxygen Delivery Method Room Air 03/16/25 08:46 BMI result Body Mass Index 39.3 Const General: alert Neck Neck: Yes normal visual inspection, Yes full ROM and Yes no lymphadenopathy Chest Chest palpation & inspection: normal inspection of the chest Resp Effort & Inspection: normal respiratory effort, Actively coughing Quality: whooping and prolonged expiratory phase Auscultation: wheezes and diminished lung sounds Cardio Rate: regular rate Rhythm: regular rhythm Heart sounds: S1 normal heart sound present and S2 normal heart sound present GI Palpation (GI): Soft to palpation and nontender Auscultation: normal bowel sounds Skin General skin exam: rashes and/or lesions noted Office Meds methylprednisolone sod suc(PF) 125 mg/2 mL solution for injection Performing Provider: Anival Hook MD Performing Location: [facility] Administered by: Meagan New LPN on 03/16/25 09:35 Dose Route Admin Location Dispensed Lot Number Expiration Date [employer] 125 mg IM 1 ea [id number] 07/29/27 7556-6951-40 [employer] Total Dispensed Waste 1 ea 0 % Assessment & Plan Assessment & Plan (1) Laryngotracheitis acute, with obstruction: Code(s): J05.0 - Acute obstructive laryngitis [croup] Category: Medical (2) Asthma: Code(s): J45.909 - Unspecified asthma, uncomplicated Category: Medical Qualifiers: Asthma complication type: uncomplicated Asthma persistence: persistent Asthma severity: moderate Qualified Code(s): J45.40 - Moderate persistent asthma, uncomplicated (3) Obstructive sleep apnea: Comment: (mild [place] on 04/18/2015 Sleep test) Code(s): G47.33 - Obstructive sleep apnea (adult) (pediatric) Category: Medical (4) Dyspnea: Code(s): R06.00 - Dyspnea, unspecified Category: Medical Qualifiers: Dyspnea type: dyspnea on exertion Qualified Code(s): R06.00 - Dyspnea, unspecified (5) Asthma-COPD overlap syndrome: Code(s): J44.89 - Other specified chronic obstructive pulmonary disease Category: Medical (6) Chronic allergic rhinitis: Code(s): J30.9 - Allergic rhinitis, unspecified Category: Medical Plan complete Doxycyline Start Azithromycin SOlumedrol IM->low dose prednisone taper cough medicine Trelegy 200 conitnue Daliresp 500 KERRI as needed Continue PAP therapty 8-12, The patient continues to be symptomatic. [employer] 11 consider starting Bilogic therapy, elevated IgE and Eosinophils, Will be a good candidate for Dupixent F/U 1-2 months Orders: Orders AMB Methylprednisolone Sod Succ Injection Today J45.40 - Moderate persistent asthma, uncomplicated Medications: New prednisone PO daily; Take 2 tabs daily x 7 days, then 1 tab daily x 7 days 21 tabs 0RF 14 days benzonatate 200 mg PO BID PRN 60 caps 6RF cough 30 days codeine-guaifenesin 10-100 mg/5 mL 10 mL PO Q6H PRN 300 mL 0RF cough 10 days azithromycin 500 mg PO DAILY 5 tabs 0RF 5 days Coding Level of Care Code Est Pt Level 4 (81207) Complex EM visit Add On G2211 Diagnoses Laryngotracheitis acute, with obstruction J05.0 Moderate persistent asthma without complication J45.40 Asthma complication type: uncomplicated Asthma persistence: persistent Asthma severity: moderate Obstructive sleep apnea G47.33 Dyspnea on exertion R06.00 Dyspnea type: dyspnea on exertion Asthma-COPD overlap syndrome J44.89 Chronic allergic rhinitis J30.9 Time Spent (min) 16
--- OUTSIDE RECORDS SUMMARY | 2025-03-16 10:00 | XMS_ITS | Patient Health Record ---
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 Name Role Phone PETRA PAULA, GEORGIE Primary Care Provider Va Thompson Unavailable [phone] Allergies Allergen (clinical drug ingredient) Drug/Non Drug Allergy documented on EMR Reaction Allergy Type Onset Date Status sulfamethoxazole / trimethoprim Bactrim Hives Drug Allergy Active fluconazole Diflucan Hives Drug Allergy Activ e lactose Lactose (Intolerance) Unknown Drug Allergy Active Substance with sulfonamide structure and antibacterial mechanism of action (substance) Sulfa Antibiotics Unknown Drug Allergy A ctive Reason For Referral No Information Medications Medication SIG (Take, Route, Frequency, Duration) Notes Start Date End Date Status Vitamin D3 50 MCG (1999) 1 capsule Or ally Every other day; Duration: 30 days Active One Daily Womens 50+ - as directed Orally Active Probiotic - as directed Orally Active oxyBUTYnin Chloride ER 10 MG Oral; Duration: 90 Days Acti ve Vitamin B Complex - as directed Orally Active Aspirin Adult Active Annie Active Meloxicam 7.5 MG Oral; Duration: 30 Active Clotrimazole-Betamethasone 1-0.05 % APPLY 1 APPLICATION TO AFFECTED AREA EXTERNALLY TWICE A DAY FOR 14 DAYS; Duration: 14 Active Montelukast Sodium 10 MG TAKE 1 TABLET B Y MOUTH EVERYDAY AT BEDTIME Oral; Duration: 90 Active Incruse Ellipta 62.5 MCG/ACT Inhalation; Duration: 30 Act juana Singulair 10 MG 1 tablet Orally Once a day; Duration: 30 day(s) Active Lisinopril 10 MG 1.5 tablet Orally da stephon at noon 09/07/2012 Active Symbicort 160-4.5 MCG/ACT 2 puffs Inhala tion twice daily 09/07/2012 Active Atorvastatin Calcium 10 MG Oral; Duration: 30 Active Albuterol Sulfate (2.5 MG/3ML) 0.083% INHALE 3ML BY NEBULIZER EVERY 6 HOURS Inhalation; Duration: 30 Active Social History Tobacco Use: Social History [...] (Standard) Question Answer Notes Tobacco use: Nonsmoker Problems Problem Type SNOMED Code ICD Code Onset Dates Problem Status W/U Status Risk Notes Problem Postmenopausal atrophic vaginitis (48336588) Postmenopausal atrophic vaginitis (N95.2) Active confirmed Problem Herniation of rectum into vagina (157663875) Rectocele (N81.6) Active confirmed Problem Malignant neoplasm of corpus uteri, excluding isthmus (246455335) Malignant neoplasm of endometrium (C54.1) Active confirmed Problem Morbid obesity (disorder) (806104189) Morbid (severe) obesity due to excess calories (E66.01) Active confirmed Problem Chronic interstitial cystitis (957441224) Interstitial cystitis (chronic) without hematuria (N30.10) Active confirmed Problem Cystocele (730651000) Cystocele, unspecified (N81.10) Active confirmed Problem Personal history of primary malignant neoplasm of female genital organ (686296729) Personal history of malignant neoplasm of other parts of uterus (Z85.42) Active confirmed Problem Malignant neoplasm of corpus uteri, excluding isthmus (disorder) (025430113) Malignant neoplasm of corpus uteri, except isthmus (182.0) Active confirmed Diag Problem Asthma (disorder) (039312155) Asthma, unspecified, unspecified status (493.90) Active confirmed Major Problem Menopausal symptom (91373202) Symptomatic menopausal or female climacteric states (627.2) Active confirmed Major Problem Gynecological examination normal (446025784335863) Routine gynecological examination (V72.31) Active confirmed Problem Screening for malignant neoplasm of colon (703618761) Special screening for malignant neoplasms, colon (V76.51) Active confirmed Major Plan Of Treatment Pending Test Test Name Order Date MAMMOGRAM, SCREENING 05/12/2017 MAMMOGRAM, SCREENING 11/13/2014 MAMMOGRAM, SCREENING 07/17/2020 MAMMOGRAM, SCREENING 07/23/2021 MAMMOGRAM, SCREENING 07/25/2022 MAMMOGRAM, SCREENING 10/27/2023 Urine Culture and Sensitivity 01/22/2015 Urinalysis 07/06/2018 Urinalysis 07/12/2019 Urinalysis 12/05/2021 COMPLETE URINALYSIS 12/05/2021 COMPLETE URINALYSIS 07/17/2020 URINE CULTURE 07/17/2020 BONE DENSITY 10/27/2023 MM Digital Mammo Screening 07/17/2020 MM Digital Mammo Screening 05/12/2017 MM Digital Mammo Screening 07/23/2021 MM Digital Mammo Screening 07/25/2022 MM Digital Mammo Screening 10/27/2023 PELVIC ULTRASOUND W/TRANSVAGINAL 020 Next Appt Details Provider Name:Va Dumont zeniakalyani, 04/12/2025 02:40:00 PM, [address] [facility], [address], [place], [address], Insurance Providers Payer Name Payer Address Payer Phone Subscriber Number Group Number Insured Name Patient Relationship to Insured Coverage Start Date Coverage End Date MEDICARE [address] [facility] [place] [id number] [phone] [id number] JORDAN DESHPANDE Self - patient is the insured [employer] [address] [place] [address] [phone] [id number] JORDAN DESHPANDE Self - patient is the insured Medical (General) History Medical History History ICD Code Cellulitis Malignant neoplasm of corpus uteri, unsp ecified C54.9 Unspecified asthma, uncomplicated J45.90 9 Menopausal and female climacteric states N95.1 Cystocele, unspecified N81.10 Unspecified urinary incontinence R32 Rectocele N81.6 Interstitial cystitis (chronic) without hematuria N30.10 Other hypertrophic disorders of the skin L91.8 Vennis Reflux Morbid (severe) obesity due to excess ca lories E66.01 Malignant neoplasm of endometrium C54.1 Postmenopausal atrophic vaginitis N95.2 Pelvic and perineal pain R10.2 Surgical History Surgery Date(Month/Year) Colonoscopy Hysterectomy JEANNETTE Tonsillectomy Umbilical Herniography Variscose Vein Laser Left Knee Replacement 01/18/16 Right Knee Replacement 09/19/16 Hospitalization History Reason Date(Month/Year) Pancreatitis ? Reaction to 2nd Covid Vac cine 10/07/20 Pnuemonia 02/2018 See Surgical Hx 3 Vaginal Deliveries
== END 2025-03-16 09:40 | disposition home or self-care (01) ==
LOC: HO.HPS 08:44
PROVIDERS: PCP Internal Medicine; Visit Provider Hospitalist
DX: J05.0 Acute obstructive laryngitis [croup] (principal); J45.40 Moderate persistent asthma, uncomplicated; G47.33 Obstructive sleep apnea (adult) (pediatric); R06.00 Dyspnea, unspecified; J44.89 Other specified chronic obstructive pulmonary disease; J30.9 Allergic rhinitis, unspecified
CPT/HCPCS: 99214; G2211

== ENCOUNTER → 2025-03-16 08:43 | Outpatient (BNVA) | payer MEDICARE, SELFPAY | PROVIDERS: PCP Internal Medicine; Visit Provider Hospitalist | DX: J05.0 Acute obstructive laryngitis [croup] (principal); J45.40 Moderate persistent asthma, uncomplicated; G47.33 Obstructive sleep apnea (adult) (pediatric); Z99.89 Dependence on other enabling machines and devices; R06.00 Dyspnea, unspecified; J44.89 Other specified chronic obstructive pulmonary disease; J30.9 Allergic rhinitis, unspecified; Z79.52 Long term (current) use of systemic steroids | CPT/HCPCS: 96372; 99212; J2919 ==